=== PATIENT | male | born 1930 | race Caucasian/White ===

== ENCOUNTER 2016-09-04 11:25 | Emergency (ER) | payer MEDICARE, OTHER ==
[~2016-09-04] VITALS: Ht 182.9 cm; Wt 100.4 kg
[~2016-09-04 11:25] MED LIST: ASPI-730 PO; BISOPROLOL; CYAN500T37 PO; FISH1CAP PO; INSU10VI5 SQ; LISINOPRIL; MULT-806 PO; SIMVASTATIN
--- NOTE | 2016-09-04 11:26 | NUR ---
STROKE ACTIVATION CALLED AT THIS TIME. JASON BRAR, ROHAN RN AND OZZY GOMEZ AT BEDSIDE.
[2016-09-04 11:27] VITALS: TEMP 97.8; Ht 182.9 cm; Wt 100.4 kg
--- NOTE | 2016-09-04 11:27 | NUR ---
DR DR SANDERS AT BEDSIDE.
--- OUTSIDE RECORDS SUMMARY | 2016-09-04 11:30 | XMS REPORT | Referral Summary ---
Author Author [facility], Family Medicine Organization [facility] Address Unknown Phone Unavailable Care Team Providers Care Network Systems Integrator Name Role Phone John Santos Primary Care Physician [phone] Encounter VC Date(s): 08/06/15 - 08/06/15 [facility] Adame Newton, Family [address] [place] [id number] Discharge Disposition: 01-Home or Self Care Attending Physician: John Santos DO Admitting Physician: John Santos DO Vital Signs Most recent to 1 oldest [Reference Range]: Peripheral Pulse 63 bpm Rate [60-100 bpm] (08/06/15 9:27 AM) Blood Pressure 155/85 mmHg [90-140/60-90 mmHg] *HI* (08/06/15 9:27 AM) SpO2 98 % (08/06/15 9:27 AM) Problem List Condition Effective Dates Status Health Status Informant Diabetes type II Active NOS(Confirmed) Hypertension(Confirm Active ed) Trasient memory Active impairment(Confirmed ) Prostatism(Confirmed Active ) PURE Active HYPERCHOLESTEROLEMIA (Confirmed) Scarlet Active fever(Confirmed) Skin Active cancer(Confirmed) Allergies, Adverse Reactions, Alerts No Known Medication Allergies Medications Glucometer strips (DME) DME Item Test Blood Sugars fasting and after evening meal daily. Diag E11.9 One touch ultra blue or comparable strips. [employer], See Instructions, # 3 boxes, 2 Refill(s), Pharmacy: [facility], Test Blood Sugars fasting and after... Start Date: 06/18/15 Status: Ordered Insulin Pin [place] (DME) DME Item novolog mix 70-30 flexpen E11.9 inject 48 U in AM and 40 U in PM- insulin BID Patient needs 90d supply, See Instructions, # 6 boxes, 0 Refill(s) , Pharmacy: [facility], novolog mix 70-30 flexpen E11.9 inject 48 U in AM... Start Date: 06/12/15 Status: Ordered levothyroxine 25 mcg (0.025 mg) oral tablet 25 mcg 1 tabs, Oral, Daily, # 90 tabs, 1 Refill(s), Pharmacy: [facility], 1 tabs Oral Daily Start Date: 06/06/15 Status: Ordered lisinopril 40 mg oral tablet 40 mg 1 tabs, Oral, Daily, # 90 tabs, 1 Refill(s), Pharmacy: [facility] Start Date: 06/06/15 Stop Date: 12/03/15 Status: Ordered Miscellaneous DME DME Item TEST BLOOD SUGARS FASTING AND AFTER EVENING MEAL DAILY. Dx: E11.9 ONE STEP TEST STRIPS, See Instructions, # 1 Each, 0 Refill(s), Pharmacy: [facility], TEST BLOOD SUGARS FASTING AND AFTER EVENING MEAL DAILY. Dx: E11.9;... Start Date: 02/25/15 Status: Ordered Miscellaneous DME DME Item BD Ultra Fine Pen [place] Short 90 Day Supply BID, See Instructions , # 180 Each, 3 Refill(s), Pharmacy: [facility], BD Ultra Fine Pen [place]; Short; 90 Day Supply; BID, Supply, DX - 250.00 Start Date: 11/19/14 Status: Ordered Miscellaneous DME DME Item Contour test strips Test blood sugars fasting and after evening meal daily DX: 250.00, See Instructions, # 3 boxes, 0 Refill(s), [facility]acy: [facility], Contour test strips; Test blood sugars fasting and after evening meal... Start Date: 03/12/14 Status: Ordered multivitamins oral tablet 1 tabs, Oral, Daily, # 30 tabs, 0 Refill(s) Start Date: 10/13/13 Status: Ordered Norvasc 5 mg oral tablet 5 mg 1 tabs, Oral, Daily, # 30 tabs, 0 Refill(s), Pharmacy: [facility], 1 tabs Oral Daily Start Date: 08/06/15 Status: Ordered simvastatin 10 mg oral tablet 10 mg 1 tabs, Oral, Bedtime (once a day), # 90 tabs, 1 Refill(s), Pharmacy: [facility], 1 tabs Oral Bedtime (once a day) Start Date: 06/06/15 Status: Ordered Ultra Thin Lancets Ultra Thin Lancets, test, Topical, QID, Test Blood sugars fasting and 2 hours after meals daily(QID) DX: E11.9, # 100 Each, 0 Refill(s), Pharmacy: [facility], DX - 250.00, test Topical QID,Instr:Test Blood sugars fasting and 2 h... Start Date: 02/25/15 Status: Ordered Ziac 10 mg-6.25 mg oral tablet 1 tabs, Oral, Daily, # 90 tabs, 1 Refill(s), Pharmacy: [facility] Start Date: 06/06/15 Stop Date: 12/03/15 Status: Ordered Results Hematology Most recent to 1 oldest [Reference Range]: WBC [4.8-10.8 11.0 10*3/uL 10*3/uL] *HI* (08/06/15 10:44 AM) RBC [4.60-6.20] 4.35 *LOW* (08/06/15 10:44 AM) Hgb [14.0-18.0 14.5 gm/dL gm/dL] (08/06/15 10:44 AM) Hct [42.0-52.0 %] 41.9 % *LOW* (08/06/15 10:44 AM) MCV [82.0-99.0 fL] 96.3 fL (08/06/15 10:44 AM) MCH [27.0-32.0 pg] 33.3 pg *HI* (08/06/15 10:44 AM) MCHC [32.0-36.0 34.6 gm/dL gm/dL] (08/06/15 10:44 AM) RDW [11.5-14.5 %] 13.2 % (08/06/15 10:44 AM) Platelet [150-400 259 10*3/uL 10*3/uL] (08/06/15 10:44 AM) MPV [8.8-14.8 fL] 9.4 fL (08/06/15 10:44 AM) Immature 0.3 % Granulocytes (08/06/15 10:44 AM) [0.0-1.0 %] Neutrophils [51-75 59 % %] (08/06/15 10:44 AM) Lymphocytes [20-46 27 % %] (08/06/15 10:44 AM) Monocytes [4-11 %] 11 % (08/06/15 10:44 AM) Eosinophils [0-4 %] 2 % (08/06/15 10:44 AM) Basophils [0-2 %] 0 % (08/06/15 10:44 AM) Neutro Absolute 6.50 10*3 [1.90-7.00 10*3] (08/06/15 10:44 AM) Lymph Absolute 2.96 10*3 [0.80-3.30 10*3] (08/06/15 10:44 AM) [place] Absolute 1.22 10*3 [0.30-1.00 10*3] *HI* (08/06/15 10:44 AM) Eos Absolute 0.26 10*3 [0.00-0.50 10*3] (08/06/15 10:44 AM) Baso Absolute 0.03 10*3 [0.00-0.20 10*3] (08/06/15 10:44 AM) Chemistry Most recent to 1 oldest [Reference Range]: Sodium Lvl [135-144 136 mEq/L mEq/L] (08/06/15 10:44 AM) Potassium Lvl 4.4 mEq/L [3.5-5.2 mEq/L] (08/06/15 10:44 AM) Chloride [99-111 103 mEq/L mEq/L] (08/06/15 10:44 AM) CO2 [23-31 mEq/L] 29 mEq/L (08/06/15 10:44 AM) AGAP [3-20] 4 (08/06/15 10:44 AM) BUN [8-26 mg/dL] 29 mg/dL *HI* (08/06/15 10:44 AM) Glucose Lvl [70-99 133 mg/dL mg/dL] *HI* (08/06/15 10:44 AM) Creatinine Lvl 1.67 mg/dL [0.72-1.25 mg/dL] *HI* (08/06/15 10:44 AM) eGFR [>60 mL/min] 39 mL/min 1 *ABN* (08/06/15 10:44 AM) Calcium Lvl 9.7 mg/dL [8.9-10.5 mg/dL] (08/06/15 10:44 AM) Albumin Lvl [3.4-4.8 4.3 gm/dL gm/dL] (08/06/15 10:44 AM) Total Protein 7.5 gm/dL [6.2-8.1 gm/dL] (08/06/15 10:44 AM) Globulin [1.8-4.0 3.2 gm/dL gm/dL] (08/06/15 10:44 AM) ALT [0-55 U/L] 10 U/L (08/06/15 10:44 AM) AST [5-34 U/L] 17 U/L (08/06/15 10:44 AM) Alk Phos [40-150 49 U/L U/L] (08/06/15 10:44 AM) Bili Total [0.2-1.2 0.7 mg/dL mg/dL] (08/06/15 10:44 AM) Chol [0-199 mg/dL] 149 mg/dL (08/06/15 10:44 AM) Trig [0-149 mg/dL] 316 mg/dL *HI* (08/06/15 10:44 AM) HDL [40-84 mg/dL] 34 mg/dL *LOW* (08/06/15 10:44 AM) LDL [0-130 mg/dL] 52 mg/dL (08/06/15 10:44 AM) VLDL Cholesterol 63 mg/dL [0-28 mg/dL] *HI* (08/06/15 10:44 AM) Cardiac Risk 4.4 [0.0-5.7] (08/06/15 10:44 AM) Hgb A1c [4.1-5.6 %] 6.4 % *HI* (08/06/15 10:44 AM) eAvg Glucose 137.0 mg/dL (08/06/15 10:44 AM) 1Result Comment: Multiply eGFR results by 1.21 for race. Immunizations Vaccine Date Refusal Reason influenza virus vaccine, inactivated 02/13/14 influenza virus vaccine, live 11/20/13 influenza virus vaccine, live 02/23/12 pneumococcal 23-polyvalent vaccine 02/21/08 pneumococcal 23-polyvalent vaccine 06/28/96 Procedures Procedure Date Related Diagnosis Body Site Hospital observation for transient memory 2014 impairment Cataract extraction - bilateral 2011 Cystoscopy 2007 Repeat patellar tendon attachement rt leg 2008 Rt leg, reattachment of quadriceps tendon 2008 with josafat Biopsy of prostate x2 2006 Colonoscopy 2005 Removal of cancer from scalp 1993 Hospital admission - scarlet fever 1935 Social History Social History Type Response Smoking Status Never smoker Assessment and Plan Extracted from: Title: Office Visit Note Author: John Santos DO Date: 08/06/15 Assessment/Plan Diabetes type 2, controlled 1. A1c ordered today, we will call him with the report. 2. Continue with current regimen of insulin. On the days that he eat pizza , I recommend increasing his insulin by 4 units. 3. Follow-up in 3 months for diabetes management. Ordered: Office Visit Level 4 Est 14575 Hypertension, uncontrolled 1. Blood pressure continues to be elevated. 2. Continue with Ziac 2 tablets daily. 3. Continue lisinopril 40 mg daily. 4. Amlodipine added today at 5 mg daily. 5. Low salt diet recommended. 6. Follow-up in one month for reevaluation. Ordered: CBC w/ Differential Office Visit Level 4 Est 22359 Type 2 DM with CKD stage 3 and hypertension 1. She has history of CKD stage III. Labs ordered today, if renal function worsens then we may consider sending him to nephrology. 2. Protein diet recommended. 3. Good blood pressure and blood sugars control recommended. Ordered: Albumin/Creatinine Ratio, Urine CBC w/ Differential Comprehensive Metabolic Panel Hemoglobin A1c Lipid Panel Office Visit Level 4 Est 63867 Orders: amLODIPine, 5 mg 1 tabs, Oral, Daily, # 30 tabs, 0 Refill(s), Pharmacy : [facility], 1 tabs Oral Daily
--- OUTSIDE RECORDS SUMMARY | 2016-09-04 11:30 | XMS REPORT | Continuity of Care Document ---
Author Author Johnny VIVEROS, Garfield MARIE [facility] Ambulatory Address [address] [place] [address] Phone Care Team Providers Care Machine Spring Former Name Role Phone Garfield Turner PP Unavailable Payers Payer name Insurance type Covered alliance party ID Authorization(s) Unknown Problems Condition Effective Dates (start - stop) Clinical Status Hypothyroidism - *Acute Diabetes Mellitus Type 2, Uncomplicated - *Chronic Hypertension, Unspecified - *Chronic Hypercholesterolemia - *Chronic DMII WO CMP NT ST UNCNTR - PURE HYPERCHOLESTEROLEM - HYPERTENSION NOS - PROSTATITIS NOS - Diabetes Mellitus Type 2, Uncomplicated - *Uncontrolled Hypercholesterolemia - *Chronic Hypertension, Unspecified - *Chronic Diabetes Mellitus Type 2, Uncomplicated - *Chronic Hypertension, Unspecified - *Chronic Hypercholesterolemia - *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 TIA (transient ischemic attack) - Episodic Diabetes Mellitus Type 2, Uncomplicated - *Chronic Hypertension, Unspecified - *Chronic Hypercholesterolemia - *Chronic Neuropathy - *Chronic Family History Family Member Diagnosis Age At Onset Status Sister () Alzheimer's Disease Yes Father (Unknown) Myocardial infarction Yes Brother (Unknown) Cancer -testicular Yes Son (Unknown) Myocardial infarction Yes Mother (Alive) 72 (cause of ) Yes Sister (Unknown) Dementia Yes Social History Social History Element Description Quantity alcohol beer Allergies, Adverse Reactions, Alerts Substance Reaction Severity Status Unknown Medications Medication Instructions Dosage Effective Dates (start - stop) Status Synthroid 25 mcg tablet take 1 tablet (25MCG) by oral route every day 25 MCG - No Longer Active Zocor 10 mg tablet Take 1 tablet by mouth at bedtime. - Active Synthroid 25 mcg tablet take 1 tablet (25MCG) by oral route every day 25 MCG - Active Zestril 20 mg tablet Take 1 tablet by mouth twice a day. - Active Plavix 75 mg tablet take 1 tablet (75MG) by oral route every day 75 MG May - Active Ziac 5 mg-6.25 mg tablet Take 1 tablet by mouth twice a day. - Active multivitamin tablet Take 1 tablet every day. - Active Lancets,Ultra Thin TEST BLOOD SUGARS FASTING AND 2 HOURS AFTER MEALS DAILY (4 times daily) - Active BD Insulin Pen Needle UF Short 31 X 5/16" USE DIRECTED inject insulin id TWICE DAILY - Active Contour Test Strips TEST BLOOD SUGARS FASTING AND 2 HOURS AFTER MEALS DAILY. - Active Novolog Mix 70-30 FlexPen 100 unit/mL subcutaneous pen inject by subcutaneous route as per insulin protocol 48 UNITS IN AM AND 40 UNITS IN PM - Active Immunizations Vaccine Date Status Comments flu (split) (3 yrs or older) preservative free completed - Completed reason: other registry flu (split) (3 yrs or older) completed pneumo (2 yrs or older) (PPV23) completed - Completed reason: source unspecified pneumo (2 yrs or older) (PPV23) completed - Completed reason: source unspecified Results Test Name Date and Time Measure Units Reference Range Abnormal Flag Comments Panel Description: Thyroid Antibodies-[facility] Thyroperoxidase Ab (TPO) 10:18:00 <3 IU/mL 0-6 Thyroglobulin Ab screen 10:18:00 6 IU/mL 0-5 H Testing performed at [facility] Reference Lab [address] [address] Vacuum Drier Operator Shiva Lopez MD Panel Description: TSH-[facility] TSH 10:18:00 3.55 uIU/mL 0.35-4.94 Testing performed at [facility] Reference Lab [address] [address] Vacuum Drier Operator Shiva Lopez MD Vital Signs Date / Time: Height Weight Pulse Rate Blood Pressure Temperature /08:29:00 71.25 in 222.00 lbs 68 /min 158/88 mm[Hg] 97.6 F Procedures Procedure Date Unknown Encounters Encounter Location Date Patient Visit [facility] Patient Visit Conversion Patient Visit [facility] Patient Visit [facility] Patient Visit [facility] Patient Visit [facility] Patient Visit [facility] Patient Visit [facility] Patient Visit [facility] Advance Directives Directive Effective Date Unknown
--- OUTSIDE RECORDS SUMMARY | 2016-09-04 11:30 | XMS REPORT | Referral Summary ---
Author Author [facility], Family [facility] Organization [facility] Address Unknown Phone Unavailable Care Team Providers Care Blender Helper Name Role Phone John Santos Primary Care Physician [phone] Encounter VC Date(s): 01/27/16 - 01/27/16 [facility] Adame Newton, [address] [place] [address]- Discharge Diagnosis: Hypertension Discharge Diagnosis: Chronic kidney disease, stage 3 Discharge Diagnosis: Disability examination Discharge Diagnosis: Dependent edema Discharge Disposition: 01-Home or Self Care Attending Physician: John Santos DO Admitting Physician: John Santos DO Vital Signs Most recent to 1 oldest [Reference Range]: Peripheral Pulse 73 bpm Rate [60-100 bpm] (01/27/16 3:18 PM) Blood Pressure 162/78 mmHg [90-140/60-90 mmHg] *HI* (01/27/16 3:18 PM) Problem List Condition Effective Dates Status Health [...] Instructions, # 3 boxes, 2 Refill(s), [facility], Test Blood Sugars fasting and after... Start Date: 06/18/15 Status: Ordered Insulin Pin [place] (DME) DME Item novolog mix 70-30 flexpen E11.9 inject 48 U in AM and 40 U in PM- insulin BID Patient needs 90d supply, See Instructions, # 6 boxes, 0 Refill(s) , Pharmacy: [facility], novolog mix 70-30 flexpen E11.9 inject 48 U in AM... Start Date: 06/12/15 Status: Ordered levothyroxine 25 mcg (0.025 mg) oral tablet 25 mcg 1 tabs, Oral, Daily, # 90 tabs, 1 Refill(s), Pharmacy: [facility], 1 tabs Oral Daily Start Date: 06/06/15 Status: Ordered lisinopril 40 mg oral tablet 40 mg 1 tabs, Oral, Daily, # 90 tabs, 1 Refill(s), Pharmacy: [facility] Start Date: 06/06/15 Stop Date: 12/03/15 Status: Ordered Miscellaneous DME DME Item TEST BLOOD SUGARS FASTING AND AFTER EVENING MEAL DAILY. Dx: E11.9 ONE STEP TEST STRIPS, See Instructions, # 1 Each, 0 Refill(s), Pharmacy: [facility], TEST BLOOD SUGARS FASTING AND AFTER EVENING MEAL DAILY. Dx: E11.9;... Start Date: 02/25/15 Status: Ordered Miscellaneous DME DME Item BD Ultra Fine Pen [place] Short 90 Day Supply BID, See Instructions , # 180 Each, 3 Refill(s), Pharmacy: [facility], BD Ultra Fine Pen [place]; Short; 90 Day Supply; BID, Supply, DX - 250.00 Start Date: 11/19/14 Status: Ordered Miscellaneous DME DME Item Contour test strips Test blood sugars fasting and after evening meal daily DX: 250.00, See Instructions, # 3 boxes, 0 Refill(s), [facility]acy: [facility], Contour test strips; Test blood sugars fasting and after evening meal... Start Date: 03/12/14 Status: Ordered multivitamins oral tablet 1 tabs, Oral, Daily, # 30 tabs, 0 Refill(s) Start Date: 10/13/13 Status: Ordered Norvasc 5 mg oral tablet 5 mg 1 tabs, Oral, Daily, # 30 tabs, 0 Refill(s), Pharmacy: [facility], 1 tabs Oral Daily Start Date: 08/06/15 Status: Ordered NovoLOG Mix 70/30 FlexPen subcutaneous suspension See Instructions, INJECT 48 UNITS IN THE MORNING AND 40 UNITS IN THEEVENING , # 90 mL, 3 Refill(s), eRx: [facility], INJECT 48 UNITS IN THE MORNING AND 40 UNITS IN THEEVENING Start Date: 10/02/15 Status: Ordered simvastatin 10 mg oral tablet 10 mg 1 tabs, Oral, Bedtime (once a day), # 90 tabs, 1 Refill(s), Pharmacy: [facility], 1 tabs Oral Bedtime (once a day) Start Date: 06/06/15 Status: Ordered Ultra Thin Lancets Ultra Thin Lancets, test, Topical, QID, Test Blood sugars fasting and 2 hours after meals daily(QID) DX: E11.9, # 100 Each, 0 Refill(s), Pharmacy: [facility], DX - 250.00, test Topical QID,Instr:Test Blood sugars fasting and 2 h... Start Date: 02/25/15 Status: Ordered Ziac 10 mg-6.25 mg oral tablet 1 tabs, Oral, Daily, # 90 tabs, 1 Refill(s), Pharmacy: [facility] Start Date: 06/06/15 Stop Date: 12/03/15 Status: Ordered Results No data available for this section Immunizations Vaccine Date Refusal Reason influenza virus vaccine, inactivated 01/27/16 influenza virus vaccine, inactivated 02/13/14 influenza virus vaccine, live 03/22/13 influenza virus vaccine, live 02/23/12 pneumococcal 23-polyvalent vaccine 02/21/08 pneumococcal 23-polyvalent vaccine 06/28/96 Procedures Procedure Date Related Diagnosis Body Site Hospital observation for 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 Recheck of his blood pressure was 142/68 2. Low salt diet recommended 3. With the finding of edema, I recommendation is to discontinue amlodipine. Patient and his daughter were agreeable. 4. Follow-up in a month for reevaluation. Ordered: Office Visit Level 4 Est 21634 2.Dependent edema 1. Treatment for edema as above. 2. Minimize salt consumption. Ordered: Office Visit Level 4 Est 86967 3.Disability examination 1. I agree with his need for disability accommodation when parking. The form was filled out and provided to the patient. Ordered: Office Visit Level 4 Est 50823 4.Chronic kidney disease, stage 3 1. Continue with recommendation as per Dr. Greenfield. Ordered: Office Visit Level 4 Est 89407 Need for influenza vaccination 1. Flu vaccination given today. Ordered: Office Visit Level 4 Est 65457
--- OUTSIDE RECORDS SUMMARY | 2016-09-04 11:30 | XMS REPORT | Referral Summary ---
Author Author [facility], Family Medicine Organization [facility] Address Unknown Phone Unavailable Care Team Providers Care Access Tech Name Role Phone John Santos Primary Care Physician [phone] Encounter VC Date(s): 09/05/15 - 09/05/15 [facility] [address] [place] [address]- Discharge Diagnosis: Well-controlled hypertension Discharge Diagnosis: Diabetes type 2, controlled Discharge Diagnosis: Plantar fascia syndrome Discharge Diagnosis: DM type 2 causing CKD stage 3 Discharge Disposition: 01-Home or Self Care Attending Physician: John Santos DO Admitting Physician: John Santos DO Vital Signs Most recent to 1 oldest [Reference Range]: Temperature Tympanic 36.3 degC [36.6-38.1 degC] *LOW* (09/05/15 9:31 AM) Peripheral Pulse 64 bpm Rate [60-100 bpm] (09/05/15 9:31 AM) Blood Pressure 135/80 mmHg [90-140/60-90 mmHg] (09/05/15 9:31 AM) SpO2 98 % (09/05/15 9:31 AM) Problem List Condition Effective Dates Status Health Status Informant Diabetes type II Active NOS(Confirmed) Hypertension(Confirm Active ed) Trasient memory Active impairment(Confirmed ) Prostatism(Confirmed Active ) PURE Active HYPERCHOLESTEROLEMIA (Confirmed) Scarlet Active fever(Confirmed) Skin Active cancer(Confirmed) Allergies, Adverse Reactions, Alerts No Known Medication Allergies Medications amLODIPine 5 mg oral tablet See Instructions, TAKE 1 TABLET DAILY, # 30 tabs, 1 Refill(s), eRx: [facility], TAKE 1 TABLET DAILY Start Date: 08/23/15 Status: Ordered Glucometer strips (DME) DME Item Test Blood Sugars fasting and after evening meal daily. Diag E11.9 One touch ultra blue or comparable strips. [employer], See Instructions, # 3 boxes, 2 Refill(s), Pharmacy: [facility], Test Blood Sugars fasting and after... Start Date: 06/18/15 Status: Ordered Insulin Pin [place] (DME) DME Item novolog mix 70-30 flexpen E11.9 inject 48 U in AM and 40 U in PM- insulin BID Patient needs 90d supply, See Instructions, # 6 boxes, 0 Refill(s) , Pharmacy: [facility], novolog mix 70-30 flexpen E11.9 inject 48 U in AM... Start Date: 06/12/15 Status: Ordered levothyroxine 25 mcg (0.025 mg) oral tablet 25 mcg 1 tabs, Oral, Daily, # 90 tabs, 1 Refill(s), Pharmacy: [facility], 1 tabs Oral Daily Start Date: 06/06/15 Status: Ordered lisinopril 40 mg oral tablet 40 mg 1 tabs, Oral, Daily, # 90 tabs, 1 Refill(s), Pharmacy: [facility] Start Date: 06/06/15 Stop Date: 12/03/15 Status: Ordered Miscellaneous DME DME Item TEST BLOOD SUGARS FASTING AND AFTER EVENING MEAL DAILY. Dx: E11.9 ONE STEP TEST STRIPS, See Instructions, # 1 Each, 0 Refill(s), Pharmacy: [facility], TEST BLOOD SUGARS FASTING AND AFTER EVENING MEAL DAILY. Dx: E11.9;... Start Date: 02/25/15 Status: Ordered Miscellaneous DME DME Item BD Ultra Fine Pen [place] Short 90 Day Supply BID, See Instructions , # 180 Each, 3 Refill(s), Pharmacy: [facility], BD Ultra Fine Pen [place]; Short; 90 Day Supply; BID, Supply, DX - 250.00 Start Date: 11/19/14 Status: Ordered Miscellaneous DME DME Item Contour test strips Test blood sugars fasting and after evening meal daily DX: 250.00, See Instructions, # 3 boxes, 0 Refill(s), Pharmacy: [facility], Contour test strips; Test blood sugars fasting and after evening meal... Start Date: 03/12/14 Status: Ordered multivitamins oral tablet 1 tabs, Oral, Daily, # 30 tabs, 0 Refill(s) Start Date: 10/13/13 Status: Ordered Norvasc 5 mg oral tablet 5 mg 1 tabs, Oral, Daily, # 30 tabs, 0 Refill(s), Pharmacy: [facility], 1 tabs Oral Daily Start Date: 08/06/15 Status: Ordered simvastatin 10 mg oral tablet 10 mg 1 tabs, Oral, Bedtime (once a day), # 90 tabs, 1 Refill(s), Pharmacy: [facility], 1 tabs Oral Bedtime (once a day) Start Date: 06/06/15 Status: Ordered Ultra Thin Lancets Ultra Thin Lancets, test, Topical, QID, Test Blood sugars fasting and 2 hours after meals daily(QID) DX: E11.9, # 100 Each, 0 Refill(s), Pharmacy: [facility], DX - 250.00, test Topical QID,Instr:Test Blood sugars fasting and 2 h... Start Date: 02/25/15 Status: Ordered Ziac 10 mg-6.25 mg oral tablet 1 tabs, Oral, Daily, # 90 tabs, 1 Refill(s), Pharmacy: [facility] Start Date: 06/06/15 Stop Date: 12/03/15 [...] Visit Note Author: John Santos DO Date: 09/05/15 Assessment/Plan Diabetes type 2, controlled 1. His A1c was 6.2, this is well controlled. 2. Continue with current insulin regimen. 3. Recheck hemoglobin A1c in 6 months. Ordered: Office Visit Level 4 Est 02976 DM type 2 causing CKD stage 3 1. His renal function is consistent with CKD stage III. Pathophysiology of this presentation discussed in detail with the patient. 2. Given that he has significant microalbuminuria, I recommended nephrology consult however he would like to hold off on that for now. 3. Avoid NSAIDs. 4. Repeat renal function in 3 months, if he has worsening creatinine and GFR then we plan on sending him to nephrology. Patient is understanding. Ordered: Office Visit Level 4 Est 54997 Plantar fascia syndrome 1. Continue with arch supports. 2. May take Tylenol for pain. Avoid NSAIDs secondary to decreased renal function. Ordered: Office Visit Level 4 Est 12438 Well-controlled hypertension 1. Recommendations as above. 2. Low salt diet recommended. 3. Continue with Norvasc, lisinopril and Ziac as previous. Ordered: Office Visit Level 4 Est 99788
--- OUTSIDE RECORDS SUMMARY | 2016-09-04 11:30 | XMS REPORT | Referral Summary ---
Author Author [facility], Family Medicine Organization [facility] Address Unknown Phone Unavailable Care Team Providers Care Spray Technician Name Role Phone John Santos Primary Care Physician [phone] Encounter VC Date(s): 12/06/15 - 12/06/15 [facility], [address] [place] [address]- Discharge Diagnosis: Hypertension Discharge Diagnosis: Plantar fasciitis, right Discharge Diagnosis: Type II diabetes mellitus, well controlled Discharge Disposition: 01-Home or Self Care Attending Physician: John Santos DO Admitting Physician: John Santos DO Vital Signs Most recent to 1 oldest [Reference Range]: Temperature Tympanic 36.6 degC [36.6-38.1 degC] (12/06/15 10:04 AM) Apical Heart Rate 72 bpm [60-100 bpm] (12/06/15 10:04 AM) Blood Pressure 136/78 mmHg [90-140/60-90 mmHg] (12/06/15 10:04 AM) SpO2 98 % (12/06/15 10:04 AM) Problem List Condition Effective Dates Status [...] One touch ultra blue or comparable strips. [employer], See Instructions, # 3 boxes, 2 Refill(s), Pharmacy: [facility], Test Blood Sugars fasting and after... Start Date: 06/18/15 Status: Ordered Insulin Pin [place] (DME) DME Item novolog mix 70-30 flexpen E11.9 inject 48 U in AM and 40 U in PM- insulin BID Patient needs 90d supply, See Instructions, # 6 boxes, 0 Refill(s) , Pharmacy: [facility], novolog mix 70-30 flexpen E11.9 inject 48 U in AM... Start Date: 06/12/15 Status: Ordered levothyroxine 25 mcg (0.025 mg) oral tablet 25 mcg 1 tabs, Oral, Daily, # 90 tabs, 1 Refill(s), Pharmacy: [facility], 1 tabs Oral Daily Start Date: 06/06/15 Status: Ordered lisinopril 40 mg oral tablet 40 mg 1 tabs, Oral, Daily, # 90 tabs, 1 Refill(s), Pharmacy: [facility] Start Date: 06/06/15 Stop Date: 12/03/15 Status: Ordered Miscellaneous DME DME Item TEST BLOOD SUGARS FASTING AND AFTER EVENING MEAL DAILY. Dx: E11.9 ONE STEP TEST STRIPS, See Instructions, # 1 Each, 0 Refill(s), Pharmacy: [facility], TEST BLOOD SUGARS FASTING AND AFTER EVENING MEAL DAILY. Dx: E11.9;... Start Date: 02/25/15 Status: Ordered Miscellaneous DME DME Item BD Ultra Fine Pen [place] Short 90 Day Supply BID, See Instructions , # 180 Each, 3 Refill(s), Pharmacy: [facility], BD Ultra Fine Pen [place]; Short; 90 Day Supply; BID, Supply, DX - 250.00 Start Date: 11/19/14 Status: Ordered Miscellaneous DME DME Item Contour test strips Test blood sugars fasting and after evening meal daily DX: 250.00, See Instructions, # 3 boxes, 0 Refill(s), Pharmacy: [facility], Contour test strips; Test blood sugars fasting and after evening meal... Start Date: 03/12/14 Status: Ordered multivitamins oral tablet 1 tabs, Oral, Daily, # 30 tabs, 0 Refill(s) Start Date: 10/13/13 Status: Ordered Norvasc 5 mg oral tablet 5 mg 1 tabs, Oral, Daily, # 30 tabs, 0 Refill(s), Pharmacy: [facility], 1 tabs Oral Daily Start Date: 08/06/15 Status: Ordered NovoLOG Mix 70/30 FlexPen subcutaneous suspension See Instructions, INJECT 48 UNITS IN THE MORNING AND 40 UNITS IN THEEVENING , # 90 mL, 3 Refill(s), eRx: [facility], INJECT 48 UNITS IN THE MORNING AND 40 UNITS IN THEEVENING Start Date: 10/02/15 Status: Ordered simvastatin 10 mg oral tablet 10 mg 1 tabs, Oral, Bedtime (once a day), # 90 tabs, 1 Refill(s), Pharmacy: [facility], 1 tabs Oral Bedtime (once a day) Start Date: 06/06/15 Status: Ordered Ultra Thin Lancets Ultra Thin Lancets, test, Topical, QID, Test Blood sugars fasting and 2 hours after meals daily(QID) DX: E11.9, # 100 Each, 0 Refill(s), Pharmacy: [facility], DX - 250.00, test Topical QID,Instr:Test Blood sugars fasting and 2 h... Start Date: 02/25/15 Status: Ordered Ziac 10 mg-6.25 mg oral tablet 1 tabs, Oral, Daily, # 90 tabs, 1 Refill(s), Pharmacy: 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 Based on his home blood sugar readings, his diabetes is well controlled. 2. Continue with current management. 3. Follow-up in 3 months for diabetes management, repeat A1c at that time. Ordered: Comprehensive Metabolic Panel Hemoglobin A1c Office Visit Level 4 Est 65530 2.Hypertension 1. His blood pressures well controlled. 2. Low salt diet recommended. 3. Avoid NSAIDs. Ordered: Office Visit Level 4 Est 85238 3.Plantar fasciitis, right 1. Clinical finding consistent with plantar fasciitis. Injection offered to which he agreed. Procedure: The plantar fascia injection Indication: Painful after region with weightbearing. Location: Right foot Medication: 40 mg of Kenalog, 1 mL of one percent lidocaine without epinephrine. Description: Following verbal informed consent, the patient was laid in the supine position, the medial aspect of the foot was cleansed with Betadine to create a sterile field. Using sterile technique, a combined solution of 40 mg of Kenalog and one percent lidocaine without epinephrine was injected towards the region of the plantar fascia. Patient tolerated treatment well. Dry dressing was applied and wound care instructions provided. Ordered: Injection(s); Single Tendon Sheath, Or Ligament Aponeurosis 77412 Office Visit Level 4 Est 44263 CKD (chronic kidney disease), stage III 1. Repeat basic metabolic profile in 3 months. 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 2. Avoid NSAIDs. Ordered: Comprehensive Metabolic Panel
--- OUTSIDE RECORDS SUMMARY | 2016-09-04 11:30 | XMS REPORT | Referral Summary ---
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 Discharge Diagnosis: Bilateral plantar fasciitis Discharge Diagnosis: Hypertension Discharge Disposition: 01-Home or Self Care Attending Physician: John Santos DO Admitting Physician: John Santos DO Vital Signs Most recent to 1 oldest [Reference Range]: Temperature Tympanic 36 degC [36.6-38.1 degC] *LOW* (05/06/15 9:05 AM) Peripheral Pulse 66 bpm Rate [60-100 bpm] (05/06/15 9:05 AM) Blood Pressure 151/68 mmHg [90-140/60-90 mmHg] *HI* (05/06/15 9:05 AM) Problem List Condition Effective Dates Status Health Status Informant Diabetes type II Active NOS(Confirmed) Hypertension(Confirm Active ed) Trasient memory Active impairment(Confirmed ) Prostatism(Confirmed Active ) PURE Active HYPERCHOLESTEROLEMIA (Confirmed) Scarlet Active fever(Confirmed) Skin Active cancer(Confirmed) Allergies, Adverse Reactions, Alerts No Known Medication Allergies Medications Glucometer strips (DME) DME Item Test Blood Sugars fasting and after evening meal daily 250.00 Contour strips. [employer], See Instructions, # 3 boxes, 3 Refill(s), Pharmacy: [facility], Test Blood Sugars fasting and after evening meal daily 250.00 Contour... Start Date: 11/19/14 Status: Ordered Insulin Pin [place] (DME) DME Item novolog mix 70-30 flexpen E11.9 inject 48 U in AM and 40 U in PM- insulin BID Patient needs 90d supply, See Instructions, # 6 boxes, 0 Refill(s) , Pharmacy: [facility], novolog mix 70-30 flexpen E11.9 inject 48 U in AM... Start Date: 02/25/15 Status: Ordered levothyroxine 25 mcg (0.025 mg) oral tablet 25 mcg 1 tabs, Oral, Daily, # 90 tabs, 1 Refill(s), Pharmacy: [id number], 1 tabs Oral Daily Start Date: 02/25/15 Status: Ordered lisinopril 20 mg oral tablet 20 mg 1 tabs, Oral, BID, # 180 tabs, 1 Refill(s), Pharmacy: [facility] Start Date: 02/25/15 Status: Ordered Miscellaneous DME DME Item TEST BLOOD SUGARS FASTING AND AFTER EVENING MEAL DAILY. Dx: E11.9 ONE STEP TEST STRIPS, See Instructions, # 1 Each, 0 Refill(s), Pharmacy: [facility], TEST BLOOD SUGARS FASTING AND AFTER EVENING MEAL DAILY. Dx: E11.9;... Start Date: 02/25/15 Status: Ordered Miscellaneous DME DME Item BD Ultra Fine Pen [place] Short 90 Day Supply BID, See Instructions , # 180 Each, 3 Refill(s), Pharmacy: [facility], BD Ultra Fine Pen [place]; Short; 90 Day Supply; BID, Supply, DX - 250.00 Start Date: 11/19/14 Status: Ordered Miscellaneous DME DME Item Contour test strips Test blood sugars fasting and after evening meal daily DX: 250.00, See Instructions, # 3 boxes, 0 Refill(s), Pharmacy: [facility], Contour test strips; Test blood sugars fasting and after evening meal... Start Date: 03/12/14 Status: Ordered multivitamins oral tablet 1 tabs, Oral, Daily, # 30 tabs, 0 Refill(s) Start Date: 10/13/13 Status: Ordered simvastatin 10 mg oral tablet 10 mg 1 tabs, Oral, Bedtime (once a day), # 90 tabs, 1 Refill(s), Pharmacy: [facility], 1 tabs Oral Bedtime (once a day) Start Date: 02/25/15 Status: Ordered Ultra Thin Lancets Ultra Thin Lancets, test, Topical, QID, Test Blood sugars fasting and 2 hours after meals daily(QID) DX: E11.9, # 100 Each, 0 Refill(s), Pharmacy: [facility], DX - 250.00, test Topical QID,Instr:Test Blood sugars fasting and 2 h... Start Date: 02/25/15 Status: Ordered Ziac 5 mg-6.25 mg oral tablet 1 tabs, Oral, BID, # 180 tabs, 1 Refill(s), Pharmacy: [facility] Start Date: 02/25/15 Status: Ordered Results No data available for [...] 2008 with josafat Biopsy of prostate x2 2005 Colonoscopy 2005 Removal of cancer from scalp 1993 Hospital admission - scarlet fever 1935 Social History Social History Type Response Smoking Status Never smoker Assessment and Plan Extracted from: Title: Office Visit Note Author: John Santos DO Date: 05/06/15 Assessment/Plan Bilateral plantar fasciitis Pathophysiology of this presentation, and differential diagnosis, discussed in detail with the patient. All questions were answered. 1. Handout provided explaining this presentation as well as exercises to help with the discomfort. 2. Alternatively, he may consider using form arch supports. 3. Follow-up in a month for reevaluation, if no improvement we may consider steroid injection. Ordered: Office Visit Level 4 Est 98529 Hypertension Blood pressures well relatively controlled, his systolic blood pressure is slightly high. We will recheck in a month timeand adjust medication accordingly. Ordered: Office Visit Level 4 Est 11196 Insulin dependent type 2 diabetes mellitus 1. Continue with NovoLog 7-30, 48 units in the morning and 40 units in the evening. 2. Recommended checking blood sugar fastingon a daily basis. 3. Bring in blood sugars at next office visit for review. Ordered: Office Visit Level 4 Est 37870 Extracted from: Title: Ambulatory Patient Education Author: John Santos DO Date: 05/06/15 Family Medicine Plantar Fasciitis (Heel Spur Syndrome) with Rehab The plantar fascia is a fibrous, ligament-like, soft-tissue structure that spans the bottom of the foot. Plantar fasciitis is a condition that causes pain in the foot due to inflammation of the tissue. SYMPTOMS Pain and tenderness on the underneath side of the foot. Pain that worsens with standing or walking. CAUSES Plantar fasciitis is caused by irritation and injury to the plantar fascia on the underneath side of the foot. Common mechanisms of injury include: Direct trauma to bottom of the foot. Damage to a small nerve that runs under the foot where the main fascia attaches to the heel bone. Stress placed on the plantar fascia due to bone spurs. RISK INCREASES WITH: Activities that place stress on the plantar fascia (running, jumping, pivoting, or cutting). Poor strength and flexibility. Improperly fitted shoes. Tight calf muscles. Flat feet. Failure to warm-up properly before activity. Obesity. PREVENTION Warm up and stretch properly before activity. Allow for adequate recovery between workouts. Maintain physical fitness: Strength, flexibility, and endurance. Cardiovascular fitness. Maintain a health body weight. Avoid stress on the plantar fascia. Wear properly fitted shoes, including arch supports for individuals who have flat feet. PROGNOSIS If treated properly, then the symptoms of plantar fasciitis usually resolve without surgery. However, occasionally surgery is necessary. RELATED COMPLICATIONS Recurrent symptoms that may result in a chronic condition. Problems of the lower back that are caused by compensating for the injury, such as limping. Pain or weakness of the foot during push-off following surgery. Chronic inflammation, scarring, and partial or complete fascia tear, occurring more often from repeated injections. TREATMENT Treatment initially involves the use of ice and medication to help reduce pain and inflammation. The use of strengthening and stretching exercises may help reduce pain with activity, especially stretches of the Achilles tendon. These exercises may be performed at home or with a therapist. Your caregiver may recommend that you use heel cups of arch supports to help reduce stress on the plantar fascia. Occasionally, corticosteroid injections are given to reduce inflammation. If symptoms persist for greater than 6 months despite non- surgical (conservative), then surgery may be recommended. MEDICATION If pain medication is necessary, then nonsteroidal anti-inflammatory medications, such as aspirin and ibuprofen, or other minor pain relievers, such as acetaminophen, are often recommended. Do not take pain medication within 7 days before surgery. Prescription pain relievers may be given if deemed necessary by your caregiver. Use only as directed and only as much as you need. Corticosteroid injections may be given by your caregiver. These injections should be reserved for the most serious cases, because they may only be given a certain number of times. HEAT AND COLD Cold treatment (icing) relieves pain and reduces inflammation. Cold treatment should be applied for 10 to 15 minutes every 2 to 3 hours for inflammation and pain and immediately after any activity that aggravates your symptoms. Use ice packs or massage the area with a piece of ice (ice massage). Heat treatment may be used prior to performing the stretching and strengthening activities prescribed by your caregiver, physical therapist, or strainer tender. Use a heat pack or soak the injury in warm water. SEEK IMMEDIATE MEDICAL CARE IF: Treatment seems to offer no benefit, or the condition worsens. Any medications produce adverse side effects. EXERCISES RANGE OF MOTION (ROM) AND STRETCHING EXERCISES - Plantar Fasciitis (Heel Spur Syndrome) These exercises may help you when beginning to rehabilitate your injury. Your symptoms may resolve with or without further involvement from your physician, physical therapist or strainer tender. While completing these exercises, remember: Restoring tissue flexibility helps normal motion to return to the joints. This allows healthier, less painful movement and activity. An effective stretch should be held for at least 30 seconds. A stretch should never be painful. You should only feel a gentle lengthening or release in the stretched tissue. RANGE OF MOTION - Toe Extension, Flexion Sit with your right / left leg crossed over your opposite knee. Grasp your toes and gently pull them back toward the top of your foot. You should feel a stretch on the bottom of your toes and/or foot. Hold this stretch for seconds. Now, gently pull your toes toward the bottom of your foot. You should feel a stretch on the top of your toes and or foot. Hold this stretch for seconds. Repeat times. Complete this stretch times per day. RANGE OF MOTION - Ankle Dorsiflexion, Active Assisted Remove shoes and sit on a chair that is preferably not on a carpeted surface. Place right / left foot under knee. Extend your opposite leg for support. Keeping your heel down, slide your right / left foot back toward the chair until you feel a stretch at your ankle or calf. If you do not feel a stretch, slide your bottom forward to the edge of the chair, while still keeping your heel down. Hold this stretch for seconds. Repeat times. Complete this stretch times per day. STRETCH Gastroc, Standing Place hands on wall. Extend right / left leg, keeping the front knee somewhat bent. Slightly point your toes inward on your back foot. Keeping your right / left heel on the floor and your knee straight, shift your weight toward the wall, not allowing your back to arch. You should feel a gentle stretch in the right / left calf. Hold this position for seconds. Repeat times. Complete this stretch times per day. STRETCH [place], Standing Place hands on wall. Extend right / left leg, keeping the other knee somewhat bent. Slightly point your toes inward on your back foot. Keep your right / left heel on the floor, bend your back knee, and slightly shift your weight over the back leg so that you feel a gentle stretch deep in your back calf. Hold this position for seconds. Repeat times. Complete this stretch times per day. STRETCH Gastrocsoleus, Standing Note: This exercise can place a lot of stress on your foot and ankle. Please complete this exercise only if specifically instructed by your caregiver. Place the ball of your right / left foot on a step, keeping your other foot firmly on the same step. Hold on to the wall or a rail for balance. Slowly lift your other foot, allowing your body weight to press your heel down over the edge of the step. You should feel a stretch in your right / left calf. Hold this position for seconds. Repeat this exercise with a slight bend in your right / left knee. Repeat times. Complete this stretch times per day. STRENGTHENING EXERCISES - Plantar Fasciitis (Heel Spur Syndrome) These exercises may help you when beginning to rehabilitate your injury. They may resolve your symptoms with or without further involvement from your physician, physical therapist or strainer tender. While completing these exercises, remember: Muscles can gain both the endurance and the strength needed for everyday activities through controlled exercises. Complete these exercises as instructed by your physician, physical therapist or strainer tender. Progress the resistance and repetitions only as guided. STRENGTH - Towel Curls Sit in a chair positioned on a non-carpeted surface. Place your foot on a towel, keeping your heel on the floor. Pull the towel toward your heel by only curling your toes. Keep your heel on the floor. If instructed by your physician, physical therapist or strainer tender, add at the end of the towel. Repeat times. Complete this exercise times per day. STRENGTH - Ankle Inversion Secure one end of a rubber exercise band/tubing to a fixed object (table, pole). Loop the other end around your foot just before your toes. Place your fists between your knees. This will focus your strengthening at your ankle. Slowly, pull your big toe up and in, making sure the band/tubing is positioned to resist the entire motion. Hold this position for seconds. Have your muscles resist the band/tubing as it slowly pulls your foot back to the starting position. Repeat times. Complete this exercises times per day. Document Released: 04/19/2006 Document Revised: 07/11/2012 Document Reviewed: ExitCare Patient Information 2015 [employer] [facility]. This information is not intended to replace advice given to you by your health care provider. Make sure you discuss any questions you have with your health care provider. Musculoskeletal Plantar Fasciitis Plantar fasciitis is a common condition that causes foot pain. It is soreness ( inflammation) of the band of tough fibrous tissue on the bottom of the foot that runs from the heel bone (calcaneus) to the ball of the foot. The cause of this soreness may be from excessive standing, poor fitting shoes, running on hard surfaces, being overweight, having an abnormal walk, or overuse (this is common in runners) of the painful foot or feet. It is also common in aerobic exercise dancers and ballet dancers. SYMPTOMS Most people with plantar fasciitis complain of: Severe pain in the morning on the bottom of their foot especially when taking the first steps out of bed. This pain recedes after a few minutes of walking. Severe pain is experienced also during walking following a long period of inactivity. Pain is worse when walking barefoot or up stairs DIAGNOSIS Your caregiver will diagnose this condition by examining and feeling your foot. Special tests such as X-rays of your foot, are usually not needed. PREVENTION Consult a sports medicine professional before beginning a new exercise program. Walking programs offer a good workout. With walking there is a lower chance of overuse injuries common to runners. There is less impact and less jarring of the joints. Begin all new exercise programs slowly. If problems or pain develop, decrease the amount of time or distance until you are at a comfortable level. Wear good shoes and replace them regularly. Stretch your foot and the heel cords at the back of the ankle (Achilles tendon) both before and after exercise. Run or exercise on even surfaces that are not hard. For example, asphalt is better than pavement. Do not run barefoot on hard surfaces. If using a treadmill, vary the incline. Do not continue to workout if you have foot or joint problems. Seek professional help if they do not improve. HOME CARE INSTRUCTIONS Avoid activities that cause you pain until you recover. Use ice or cold packs on the problem or painful areas after working out. Only take [id number] or prescription medicines for pain, discomfort, or fever as directed by your caregiver. Soft shoe inserts or athletic shoes with air or gel sole cushions may be helpful. If problems continue or become more severe, consult a sports medicine caregiver or your own health care provider. Cortisone is a potent anti- inflammatory medication that may be injected into the painful area. You can discuss this treatment with your caregiver. MAKE SURE YOU: Understand these instructions. Will watch your condition. Will get help right away if you are not doing well or get worse. Document Released: 01/12/2002 Document Revised: 07/11/2012 Document Reviewed: ExitCare Patient Information 2015 [facility]. This information is not intended to replace advice given to you by your health care provider. Make sure you discuss any questions you have with your health care provider. No follow up information was provided.
--- OUTSIDE RECORDS SUMMARY | 2016-09-04 11:30 | XMS REPORT | Referral Summary ---
Author Author [facility], Family Medicine Organization [facility] Address Unknown Phone Unavailable Care Team Providers Care Recreational Counselor Name Role Phone John Santos Primary Care Physician [phone] Encounter VC Date(s): 03/09/16 - 03/09/16 [facility] Adame Newton, [address] [place] [address] Discharge Diagnosis: HTN (hypertension) Discharge Diagnosis: Diabetes type 2, uncontrolled Discharge Disposition: 01-Home or Self Care Attending Physician: John Santos DO Vital Signs Most recent to 1 oldest [Reference Range]: Temperature Tympanic 36.2 degC [36.6-38.1 degC] *LOW* (03/09/16 10:31 AM) Peripheral Pulse 78 bpm Rate [60-100 bpm] (03/09/16 10:31 AM) Blood Pressure 165/75 mmHg [90-140/60-90 mmHg] *HI* (03/09/16 10:31 AM) Problem List Condition Effective Dates Status Health Status Informant Diabetes type II Active NOS(Confirmed) Hypertension(Confirm Active ed) Trasient memory Active impairment(Confirmed ) Prostatism(Confirmed Active ) PURE Active HYPERCHOLESTEROLEMIA (Confirmed) Scarlet Active fever(Confirmed) Skin Active cancer(Confirmed) Allergies, Adverse Reactions, Alerts No Known Medication Allergies Medications bisoprolol-hydrochlorothiazide 10 mg-6.25 mg oral tablet See Instructions, TAKE 1 TABLET DAILY, # 90 tabs, 2 Refill(s), [facility], TAKE 1 TABLET DAILY Start Date: 02/03/16 Status: Ordered Glucometer strips (DME) DME Item Test Blood Sugars fasting and after evening meal daily. Diag E11.9 One touch ultra blue or comparable strips. [employer], See Instructions, # 3 boxes, 2 Refill(s), Pharmacy: [facility], Test Blood Sugars fasting and after... Start Date: 06/18/15 Status: Ordered Insulin Pin [place] (DME) DME Item novolog mix 70-30 flexpen E11.9 inject 48 U in AM and 40 U in PM- insulin BID Patient needs 90d supply, See Instructions, # 6 boxes, 0 Refill(s) , Pharmacy: [facility], novolog mix 70-30 flexpen E11.9 inject 48 U in AM... Start Date: 06/12/15 Status: Ordered lisinopril 40 mg oral tablet 40 mg 1 tabs, Oral, Daily, # 90 tabs, 1 Refill(s), Pharmacy: [facility] Start Date: 06/06/15 Stop Date: 12/03/15 Status: Ordered Miscellaneous DME DME Item TEST BLOOD SUGARS FASTING AND AFTER EVENING MEAL DAILY. Dx: E11.9 ONE STEP TEST STRIPS, See Instructions, # 1 Each, 0 Refill(s), Pharmacy: [facility], TEST BLOOD SUGARS FASTING AND AFTER EVENING MEAL DAILY. Dx: E11.9;... Start Date: 02/25/15 Status: Ordered Miscellaneous DME DME Item BD Ultra Fine Pen [place] Short 90 Day Supply BID, See Instructions , # 180 Each, 3 Refill(s), Pharmacy: [facility], BD Ultra Fine Pen [place]; Short; 90 Day Supply; BID, Supply, DX - 250.00 Start Date: 11/19/14 Status: Ordered Miscellaneous DME DME Item Contour test strips Test blood sugars fasting and after evening meal daily DX: 250.00, See Instructions, # 3 boxes, 0 Refill(s), Pharmacy: [facility], Contour test strips; Test blood sugars fasting and after evening meal... Start Date: 03/12/14 Status: Ordered multivitamins oral tablet 1 tabs, Oral, Daily, # 30 tabs, 0 Refill(s) Start Date: 10/13/13 Status: Ordered Norvasc 5 mg oral tablet 5 mg 1 tabs, Oral, Daily, # 30 tabs, 0 Refill(s), Pharmacy: [facility], 1 tabs Oral Daily Start Date: 08/06/15 Status: Ordered NovoLOG Mix 70/30 FlexPen subcutaneous suspension See Instructions, INJECT 48 UNITS IN THE MORNING AND 40 UNITS IN THEEVENING , # 90 mL, 3 Refill(s), eRx: [facility], INJECT 48 UNITS IN THE MORNING AND 40 UNITS IN THEEVENING Start Date: 10/02/15 Status: Ordered simvastatin 10 mg oral tablet 10 mg 1 tabs, Oral, Bedtime (once a day), # 90 tabs, 1 Refill(s), Pharmacy: [facility], 1 tabs Oral Bedtime (once a day) Start Date: 06/06/15 Status: Ordered Synthroid 25 mcg (0.025 mg) oral tablet See Instructions, TAKE 1 TABLET DAILY, # 90 tabs, 2 Refill(s), eRx: [facility], TAKE 1 TABLET DAILY Start Date: 02/03/16 Status: Ordered Ultra Thin Lancets Ultra Thin Lancets, test, Topical, QID, Test Blood sugars fasting and 2 hours after meals daily(QID) DX: E11.9, # 100 Each, 0 Refill(s), Pharmacy: [facility], DX - 250.00, test Topical QID,Instr:Test Blood sugars fasting and 2 h... Start Date: 02/25/15 Status: Ordered Results Chemistry Most recent to 1 oldest [Reference Range]: Hgb A1c [4.1-5.6 %] 6.1 % *HI* (03/09/16 11:20 AM) eAvg Glucose 128.4 mg/dL (03/09/16 11:20 AM) Immunizations Vaccine Date Refusal Reason influenza virus [...] Title: Office Visit Note Author: John Santos Date: 03/09/16 Assessment/Plan Diabetes type 2, uncontrolled 1. Recheck A1c today. 2. We will adjust his medications accordingly. Ordered: Hemoglobin A1c Office Visit Level 4 Est 07079 HTN (hypertension) 1. I personally rechecked his blood pressure today and it was 142/72 2. Low salt diet recommended 3. Follow-up in 2 months for reevaluation 4. No change in medications at this time.
--- OUTSIDE RECORDS SUMMARY | 2016-09-04 11:30 | XMS REPORT | Referral Summary ---
Author Author [facility] Ad[facility], Family Medicine Organization [facility] Address Unknown Phone Unavailable Care Team Providers Care Narrow Fabric Calenderer Name Role Phone John Santos Primary Care Physician [phone] Encounter VC Date(s): 04/03/16 - 04/03/16 [facility] GILBERT[facility] Adame Newton, [address] [place] [address] Discharge Diagnosis: Confusion state Discharge Disposition: 01-Home or Self Care Attending Physician: John Santos DO Admitting Physician: John Santos DO Vital Signs Most recent to 1 oldest [Reference Range]: Temperature Tympanic 36.8 degC [36.6-38.1 degC] (04/03/16 3:18 PM) Peripheral Pulse 80 bpm Rate [60-100 bpm] (04/03/16 3:18 PM) Blood Pressure 151/80 mmHg [90-140/60-90 mmHg] *HI* (04/03/16 3:18 PM) Problem List Condition Effective Dates [...] DAILY, # 90 tabs, 2 Refill(s), eRx: [email or web address], TAKE 1 TABLET DAILY Start Date: 02/03/16 Status: Ordered Glucometer strips (DME) DME Item Test Blood Sugars fasting and after evening meal daily. Diag E11.9 One touch ultra blue or comparable strips. [employer], See Instructions, # 3 boxes, 2 Refill(s), [facility], Test Blood Sugars fasting and after... Start Date: 06/18/15 Status: Ordered Insulin Pin [place] (DME) DME Item novolog mix 70-30 flexpen E11.9 inject 48 U in AM and 40 U in PM- insulin BID Patient needs 90d supply, See Instructions, # 6 boxes, 0 Refill(s) , Pharmacy: [facility], novolog mix 70-30 flexpen E11.9 [...] DME DME Item BD Ultra Fine Pen [place] Short 90 Day Supply BID, See Instructions , # 180 Each, 3 Refill(s), Pharmacy: [facility], BD Ultra Fine Pen [place]; Short; 90 Day Supply; BID, Supply, DX - 250.00 Start Date: 11/19/14 Status: Ordered Miscellaneous DME DME Item Contour test strips Test blood sugars fasting and after evening meal daily DX: 250.00, See Instructions, # 3 boxes, 0 Refill(s), [facility]acy: [facility], Contour test strips; Test blood sugars fasting and after evening meal... Start Date: 03/12/14 Status: Ordered multivitamins oral tablet 1 tabs, Oral, Daily, # 30 tabs, 0 Refill(s) Start Date: 10/13/13 Status: Ordered NovoLOG Mix 70/30 FlexPen subcutaneous suspension See Instructions, INJECT 48 UNITS IN THE MORNING AND 40 UNITS IN THEEVENING , # 90 mL, 3 Refill(s), eRx: [facility], INJECT 48 UNITS IN THE MORNING [...] DAILY, # 90 tabs, 2 Refill(s), eRx: [facility], TAKE 1 TABLET DAILY Start Date: 02/03/16 Status: Ordered Ultra Thin Lancets Ultra Thin Lancets, test, Topical, QID, Test Blood sugars fasting and 2 hours after meals daily(QID) DX: E11.9, # 100 Each, 0 Refill(s), Pharmacy: [facility], DX - 250.00, test Topical QID,Instr:Test Blood sugars fasting and 2 h... Start Date: 02/25/15 Status: Ordered Results Hematology Most recent to 1 oldest [Reference Range]: WBC [5.0-10.0 10.3 10*3/uL 10*3/uL] *HI* (04/03/16 4:14 PM) RBC [3.70-5.20] 4.21 (04/03/16 4:14 PM) Hgb [12.0-16.0 14.0 gm/dL gm/dL] (04/03/16 4:14 PM) Hct [40.0-54.0 %] 40.0 % (04/03/16 4:14 PM) MCV [80.0-96.0 fL] 95.0 fL (04/03/16 4:14 PM) MCH [26.0-34.0 pg] 33.3 pg (04/03/16 4:14 PM) MCHC [32.0-36.0 35.0 gm/dL gm/dL] (04/03/16 4:14 PM) RDW [0.0-14.5 %] 12.6 % (04/03/16 4:14 PM) Platelet [150-400 235 10*3/uL 10*3/uL] (04/03/16 4:14 PM) MPV [8.8-14.8 fL] 8.8 fL (04/03/16 4:14 PM) Neutrophils [50-70 60 % %] (04/03/16 4:14 PM) Lymphocytes [20-40 28 % %] (04/03/16 4:14 PM) Monocytes [4-8 %] 10 % *HI* (04/03/16 4:14 PM) Eosinophils [0-6 %] 2 % (04/03/16 4:14 PM) Basophils [0-2 %] 0 % (04/03/16 4:14 PM) Neutro Absolute 6.21 10*3 [2.50-7.00 10*3] (04/03/16 4:14 PM) Lymph Absolute 2.86 10*3 [1.00-4.00 10*3] (04/03/16 4:14 PM) [place] Absolute 1.00 10*3 [0.20-0.80 10*3] *HI* (04/03/16 4:14 PM) Eos Absolute 0.19 10*3 [0.00-0.60 10*3] (04/03/16 4:14 PM) Baso Absolute 0.03 [0.00-0.30] (04/03/16 4:14 PM) Chemistry Most recent to 1 oldest [Reference Range]: Sodium Venous 138 mmol/L [136-144 mmol/L] (04/03/16 4:14 PM) Potassium Venous 4.1 mmol/L 1 [3.6-5.1 mmol/L] (04/03/16 4:14 PM) Calcium Ionized 1.22 mmol/L Venous [1.19-1.41 (04/03/16 4:14 PM) mmol/L] Total CO2 Venous 23 mmol/L [25-29 mmol/L] *LOW* (04/03/16 4:14 PM) Glucose Venous 185 mg/dL [70-100 mg/dL] *HI* (04/03/16 4:14 PM) BUN Venous [4-20] 33 *HI* (04/03/16 4:14 PM) Creatinine Venous 1.6 mg/dL [0.7-1.2 mg/dL] *HI* (04/03/16 4:14 PM) Venous CL [99-109 97 mmol/L mmol/L] *LOW* (04/03/16 4:14 PM) 1Result Comment: This test was performed on a whole blood specimen. The presence or absence of hemolysis cannot be assessed. Hemolysis can falsely elevate potassium levels. Normals are for venous specimens only. Urinalysis Most recent to 1 oldest [Reference Range]: UA Color Yellow (04/03/16 4:23 PM) UA Appear Clear (04/03/16 4:23 PM) UA pH [5.0-8.0] 5.5 (04/03/16 4:23 PM) UA Leuk Est Negative [Negative] (04/03/16 4:23 PM) UA Nitrite Negative [Negative] (04/03/16 4:23 PM) UA Protein Pos 2+ [Negative] *ABN* (04/03/16 4:23 PM) UA Glucose Trace [Negative] *ABN* (04/03/16 4:23 PM) UA Ketones Negative [Negative] (04/03/16 4:23 PM) UA Urobilinogen 0.2 mg/dL [<=1.0 mg/dL] (04/03/16 4:23 PM) UA Bili [Negative] Negative (04/03/16 4:23 PM) UA Blood [Negative] Pos 3+ *ABN* (04/03/16 4:23 PM) UA Spec Grav 1.025 [1.003-1.030] (04/03/16 4:23 PM) Type Voided (04/03/16 4:23 PM) UA WBC [0-4] 0-2 (04/03/16 4:23 PM) UA RBC [0-2] 2-5 (04/03/16 4:23 PM) Epithelial Cells 0-2 (04/03/16 4:23 PM) Immunizations Vaccine Date Refusal Reason influenza virus [...] Colonoscopy 2006 Removal of cancer from scalp 1994 Hospital admission - scarlet fever 1935 Social History Social History Type Response Smoking Status Never smoker Assessment and Plan Extracted from: Title: Office Visit Note Author: John Santos DO Date: 04/03/16 Assessment/Plan Confusion state 1. EKG sinus rhythm with a rate of 66 and first degree AV block. He has T-wave inversions in leads 2, [address] segment elevation or depression. 2. CBC demonstrated white count of 10.3 rest of his blood count was essentially normal. 3. Sodium was 138, potassium was 4.1, bicarbonate was 23, glucose was 185, BUN was 33 creatinine was 1.6 4. His UA was negative for urinary tract infection however he had +2 protein and +3 of blood. Specific gravity was 1.025 consistent with urine concentration. 5. Is slightly elevated white blood cells raises concern for early infectious process although his upper airway, lower airway were essentially normal and his UA was consistent with urinary tract infection. I suspect this is early stage of upper respiratory tract viral infection. 6. I had a long discussion with the patient and family members who were present. If he has recurrent confusion, then my recommendation is to take him to the emergency department for evaluation. Patient and family members voiced understanding. 7. Differential diagnosis for this confusion could be TIA versus arrhythmia versus ME versus mild dehydration. This was discussed in detail with the patient and his family member. Ordered: CBC w/ Differential EKG with Interpretation 24708 Metabolic Panel i-STAT Urinalysis with Culture if Indicated
--- OUTSIDE RECORDS SUMMARY | 2016-09-04 11:30 | XMS REPORT | Referral Summary ---
Author Organization Unknown Address Unknown Phone Unavailable Care Team Providers Care Business Continuity Consultant Name Role Phone Helen Turner Primary Care Physician [phone] Encounter VC Date(s): 05/18/14 - 05/18/14 [facility] Adame, Steve, Internal Medicine [address] [place] [address] Dr [place] [id number] Discharge Diagnosis: Diabetic neuropathy Discharge Diagnosis: Diabetes type II NOS Discharge Diagnosis: PURE HYPERCHOLESTEROLEMIA Discharge Diagnosis: Hypothyroidism Discharge Diagnosis: History of TIAs Discharge Diagnosis: Anticoagulation adequate with anticoagulant therapy Discharge Diagnosis: Chronic kidney disease, stage III (moderate) Discharge Diagnosis: Hypertension Discharge Disposition: Home or Self Care Attending Physician: Garfield Turner MD Admitting Physician: Garfield Turner MD Vital Signs Most recent to 1 oldest [Reference Range]: Temperature Tympanic 35.7 degC [36.6-38.1 degC] *LOW* (05/18/14 8:17 AM) Peripheral Pulse 61 bpm Rate [60-100 bpm] (05/18/14 8:17 AM) Respiratory Rate 14 br/min [14-20 br/min] (05/18/14 8:17 AM) Blood Pressure 120/72 mmHg [90-140/60-90 mmHg] (05/18/14 8:17 AM) Most recent to 1 oldest [Reference Range]: SpO2 96 % (05/18/14 8:17 AM) Problem List Condition Effective Dates Status Health Status Informant Diabetes type II Active NOS(Confirmed) Hypertension(Confirm Active ed) Trasient memory Active impairment(Confirmed ) Prostatism(Confirmed Active ) PURE Active HYPERCHOLESTEROLEMIA (Confirmed) Scarlet Active fever(Confirmed) Skin Active cancer(Confirmed) Allergies, Adverse Reactions, Alerts No Known Medication Allergies Medications Glucometer strips (DME) DME Item Test Blood Sugars fasting and after evening meal daily 250.00 Contour strips. [employer], See Instructions, # 3 boxes, 3 Refill(s), Pharmacy: [facility], Test Blood Sugars fasting and after evening meal daily 250.00 Contour s... Special Instructions: Test Blood Sugars fasting and after evening meal daily 250.00 Contour strips. [employer] Start Date: 05/07/14 Status: Ordered Insulin Pin [place] (DME) DME Item novolog mix 70-30 flexpen 250.00 inject 48 U in AM and 40 U in PM- insulin BID Patient needs 90d supply, See Instructions, # 6 boxes, 0 Refill(s) , Pharmacy: [facility], novolog mix 70-30 flexpen 250.00 inject 48 U in AM... Special Instructions: novolog mix 70-30 flexpen 250.00 inject 48 U in AM and 40 U in PM- insulin BID Patient needs 90d supply Start Date: 05/18/14 Status: Ordered levothyroxine 25 mcg (0.025 mg) oral tablet 1 tabs, Oral, Daily, # 90 tabs, 0 Refill(s), Pharmacy: [facility], 1 tabs Oral Daily Start Date: 05/07/14 Status: Ordered lisinopril 20 mg oral tablet 1 tabs, Oral, BID, # 180 tabs, 0 Refill(s), Pharmacy: [facility] Start Date: 05/07/14 Status: Ordered Miscellaneous DME DME Item Contour test strips Test blood sugars fasting and after evening meal daily DX: 250.00, See Instructions, # 3 boxes, 0 Refill(s), Pharmacy: [facility], Contour test strips; Test blood sugars fasting and after evening meal... Special Instructions: Contour test strips Test blood sugars fasting and after evening meal daily DX: 250.00 Start Date: 03/12/14 Status: Ordered Miscellaneous DME DME Item BD Ultra Fine Pen [place] Short 90 Day Supply BID, See Instructions , # 180 Each, 0 Refill(s), Pharmacy: [facility], BD Ultra Fine Pen [place]; Short; 90 Day Supply; BID, Supply Special Instructions: BD Ultra Fine Pen [place] Short 90 Day Supply BID Start Date: 05/07/14 Status: Ordered multivitamins oral tablet 1 tabs, Oral, Daily, # 30 tabs, 0 Refill(s) Start Date: 10/13/13 Status: Ordered simvastatin 10 mg oral tablet 1 tabs, Oral, Bedtime (once a day), # 90 tabs, 0 Refill(s), [facility], 1 tabs Oral Bedtime (once a day) Start Date: 05/07/14 Status: Ordered Ultra Thin Lancets Ultra Thin Lancets, test, Topical, QID, Test Blood sugars fasting and 2 hours after meals daily(QID), 0 Refill(s) Special Instructions: Test Blood sugars fasting and 2 hours after meals daily( QID) Start Date: 10/13/13 Status: Ordered warfarin 1 mg oral tablet 1 tabs, Oral, Daily, As directed by physcian according to INR, # 270 tabs, 0 Refill(s), [facility], 1 tabs Oral Daily,Instr: As directed by physcian according to INR Special Instructions: As directed by physcian according to INR Start Date: 05/10/14 Status: Ordered warfarin 5 mg oral tablet 1 tabs, Oral, Daily, As directed by physcian according to INR, # 90 tabs, 0 Refill(s), [facility], 1 tabs Oral Daily,Instr: As directed by physcian according to INR Special Instructions: As directed by physcian according to INR Start Date: 05/07/14 Status: Ordered Ziac 5 mg-6.25 mg oral tablet 1 tabs, Oral, BID, # 180 tabs, 0 Refill(s), [facility] Start Date: 05/07/14 Status: Ordered Results No data available for [...] smoker Assessment and Plan Extracted from: Title: Ambulatory Patient Education Author: Garfield Turner MD Date: Family Medicine Diabetes and Exercise Regular exercise is important and can help: Control blood glucose (sugar ). Decrease blood pressure. Control blood lipids (cholesterol, triglycerides ). Improve overall health. BENEFITS FROM EXERCISE Improved fitness. Improved flexibility. Improved endurance. Increased bone density. Weight control. Increased muscle strength. Decreased body fat. Improvement of the body's use of insulin, a hormone. Increased insulin sensitivity. Reduction of insulin needs. Reduced stress and tension. Helps you feel better. People with diabetes who add exercise to their lifestyle gain additional benefits, including: Weight loss. Reduced appetite. Improvement of the body's use of blood glucose. Decreased risk factors for heart disease: Lowering of cholesterol and triglycerides. Raising the level of good cholesterol (high-density lipoproteins, HDL ). Lowering blood sugar. Decreased blood pressure. TYPE 1 DIABETES AND EXERCISE Exercise will usually lower your blood glucose. If blood glucose is greater than 240 mg/dl, check urine ketones. If ketones are present, do not exercise. Location of the insulin injection sites may need to be adjusted with exercise. Avoid injecting insulin into areas of the body that will be exercised. For example, avoid injecting insulin into: The arms when playing tennis. The legs when jogging. For more information, discuss this with your caregiver. Keep a record of: Food intake. Type and amount of exercise. Expected peak times of insulin action. Blood glucose levels. Do this before, during, and after exercise. Review your records with your caregiver. This will help you to develop guidelines for adjusting food intake and insulin amounts. TYPE 2 DIABETES AND EXERCISE Regular physical activity can help control blood glucose. Exercise is important because it may: Increase the body's sensitivity to insulin. Improve blood glucose control. Exercise reduces the risk of heart disease. It decreases serum cholesterol and triglycerides. It also lowers blood pressure. Those who take insulin or oral hypoglycemic agents should watch for signs of hypoglycemia. These signs include dizziness, shaking, sweating, chills, and confusion. Body water is lost during exercise. It must be replaced. This will help to avoid loss of body fluids (dehydration ) or heat stroke. Be sure to talk to your caregiver before starting an exercise program to make sure it is safe for you. Remember, any activity is better than none. Document Released: 07/09/2004 Document Revised: 07/11/2012 Document Reviewed: [facility] Patient Information 2014 [employer]. Follow Up With: Where: When: Garfield Turner [address] [place] [address]; Via [facility] [place] Wilson [phone] Business (2) In 3 months 08/16/2014 Comments: Extracted from: Title: Office Visit Note Author: Garfield Turner MD Date: 05/18/14 Assessment/Plan Anticoagulation adequate with anticoagulant therapy He has been on any coagulation therapy for about 6 months. He wanted to continue this at the present time since he had some medications were ordered. He will plan to discontinue Coumadin after his prescription runs out. Ordered: Office Visit Level 4 Est 87645 Chronic kidney disease, stage III (moderate) He will continue his same medication Ordered: Office Visit Level 4 Est 53437 Diabetes type II NOS Lab will be rechecked in July. Ordered: Office Visit Level 4 Est 66821 Diabetic neuropathy His condition in this regard is unchanged. Ordered: Office Visit Level 4 Est 47975 History of TIAs He will be considered for restarting Plavix after he is off Coumadin. Ordered: Office Visit Level 4 Est 91400 Hypertension This is well controlled. He will continue his same medication. Ordered: Office Visit Level 4 Est 05276 Hypothyroidism He will continue his same medication. Ordered: Office Visit Level 4 Est 67693 PURE HYPERCHOLESTEROLEMIA Laboratory rechecked in July. Ordered: Office Visit Level 4 Est 49087 Orders: [employer] Rx, DME Item novolog mix 70-30 flexpen 250.00 inject 48 U in AM and 40 U in PM- insulin BID Patient needs 90d supply, See Instructions, # 6 boxes, 0 Refill(s), Pharmacy: [facility], novolog mix 70-30 flexpen 250.00 inject 48 U in AM... Creatine Kinase Hemoglobin A1c Hepatic Function Panel LDL Direct
--- OUTSIDE RECORDS SUMMARY | 2016-09-04 11:30 | XMS REPORT | Referral Summary ---
Author Author [facility]IL[facility] Adame [facility], Family [facility] Organization [facility] GILBERT[facility] Adame [facility], 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 Role Phone John Santos Primary Care Physician [phone] Encounter VC Date(s): 12/11/15 - 12/11/15 [facility] GILBERTO Adame Newton, [address] [place] [address]- Discharge Disposition: 01-Home or Self Care Attending Physician: John Santos DO Admitting Physician: John Santos DO Vital Signs Most recent to 1 oldest [Reference Range]: Temperature Tympanic 36.9 degC [36.6-38.1 degC] (12/11/15 2:13 PM) Peripheral Pulse 75 bpm Rate [60-100 bpm] (12/11/15 2:13 PM) Respiratory Rate 17 br/min [14-20 br/min] (12/11/15 2:13 PM) Blood Pressure 150/70 mmHg [90-140/60-90 mmHg] *HI* (12/11/15 2:13 PM) SpO2 96 % (12/11/15 2:13 PM) Problem List Condition Effective Dates Status [...] One touch ultra blue or comparable strips. [employer], See Instructions, # 3 boxes, 2 Refill(s), [facility], Test Blood Sugars fasting and after... Start Date: 06/18/15 Status: Ordered Insulin Pin [place] (DME) DME Item novolog mix 70-30 flexpen E11.9 inject 48 U in AM and 40 U in PM- insulin BID Patient needs 90d supply, See Instructions, # 6 boxes, 0 Refill(s) , Pharmacy: [facility], novolog mix 70-30 flexpen E11.9 inject 48 U in AM... Start Date: 06/12/15 Status: Ordered levothyroxine 25 mcg (0.025 mg) oral tablet 25 mcg 1 tabs, Oral, Daily, # 90 tabs, 1 Refill(s), Pharmacy: [facility], 1 tabs Oral Daily Start Date: 06/06/15 Status: Ordered lisinopril 40 mg oral tablet 40 mg 1 tabs, Oral, Daily, # 90 tabs, 1 Refill(s), Pharmacy: [facility] Start Date: 06/06/15 Stop Date: 12/03/15 Status: Ordered Miscellaneous DME DME Item TEST BLOOD SUGARS FASTING AND AFTER EVENING MEAL DAILY. Dx: E11.9 ONE STEP TEST STRIPS, See Instructions, # 1 Each, 0 Refill(s), Pharmacy: [facility], TEST BLOOD SUGARS FASTING AND AFTER EVENING MEAL DAILY. Dx: E11.9;... Start Date: 02/25/15 Status: Ordered Miscellaneous DME DME Item BD Ultra Fine Pen [place] Short 90 Day Supply BID, See Instructions , # 180 Each, 3 Refill(s), Pharmacy: [facility], BD Ultra Fine Pen [place]; Short; 90 Day Supply; BID, Supply, DX - 250.00 Start Date: 11/19/14 Status: Ordered Miscellaneous DME DME Item Contour test strips Test blood sugars fasting and after evening meal daily DX: 250.00, See Instructions, # 3 boxes, 0 Refill(s), [facility]: [facility], Contour test strips; Test blood sugars fasting and after evening meal... Start Date: 03/12/14 Status: Ordered multivitamins oral tablet 1 tabs, Oral, Daily, # 30 tabs, 0 Refill(s) Start Date: 10/13/13 Status: Ordered Norvasc 5 mg oral tablet 5 mg 1 tabs, Oral, Daily, # 30 tabs, 0 Refill(s), Pharmacy: [facility], 1 tabs Oral Daily Start Date: 08/06/15 Status: Ordered NovoLOG Mix 70/30 FlexPen subcutaneous suspension See Instructions, INJECT 48 UNITS IN THE MORNING AND 40 UNITS IN THEEVENING , # 90 mL, 3 Refill(s), eRx: [facility], INJECT 48 UNITS IN THE MORNING AND 40 UNITS IN THEEVENING Start Date: 10/02/15 Status: Ordered simvastatin 10 mg oral tablet 10 mg 1 tabs, Oral, Bedtime (once a day), # 90 tabs, 1 Refill(s), Pharmacy: [facility], 1 tabs Oral Bedtime (once a day) Start Date: 06/06/15 Status: Ordered Ultra Thin Lancets Ultra Thin Lancets, test, Topical, QID, Test Blood sugars fasting and 2 hours after meals daily(QID) DX: E11.9, # 100 Each, 0 Refill(s), Pharmacy: [facility], DX - 250.00, test Topical QID,Instr:Test Blood sugars fasting and 2 h... 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 Pathophysiology of this presentation discussed in detail with the patient and his daughter, all questions were answered. 2. Low salt diet recommended. 3. Avoid NSAIDs. 4. Lisinopril was decreased to 20 mg daily. 5. Follow-up in a month for reevaluation of his blood pressure. Ordered: Office Visit Level 3 Est 64589
--- OUTSIDE RECORDS SUMMARY | 2016-09-04 11:30 | XMS REPORT | Referral Summary ---
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 Name Role Phone John Santos Primary Care Physician [phone] Encounter VC Date(s): 06/06/15 - 06/06/15 [facility], Family [address] [place] [id number] Discharge Disposition: 01-Home or Self Care Attending Physician: John Santos DO Admitting Physician: John Santos DO Vital Signs Most recent to 1 oldest [Reference Range]: Peripheral Pulse 70 bpm Rate [60-100 bpm] (06/06/15 9:34 AM) Blood Pressure 150/80 mmHg [90-140/60-90 mmHg] *HI* (06/06/15 9:34 AM) SpO2 98 % (06/06/15 9:34 AM) Problem List Condition Effective Dates Status Health Status Informant Diabetes type II Active NOS(Confirmed) Hypertension(Confirm Active ed) Trasient memory Active impairment(Confirmed ) Prostatism(Confirmed Active ) PURE Active HYPERCHOLESTEROLEMIA (Confirmed) Scarlet Active fever(Confirmed) Skin Active cancer(Confirmed) Allergies, Adverse Reactions, Alerts No Known Medication Allergies Medications Glucometer strips (DME) DME Item Test Blood Sugars fasting and after evening meal daily 250.00 Contour strips. [employer], See Instructions, # 3 boxes, 3 Refill(s), Pharmacy: [facility], Test Blood Sugars fasting and after evening meal daily 250.00 Contour... Start Date: 11/19/14 Status: Ordered Insulin [place] (DME) DME Item novolog mix 70-30 flexpen E11.9 inject 48 U in AM and 40 U in PM- insulin BID Patient needs 90d supply, See Instructions, # 6 boxes, 0 Refill(s) , Pharmacy: [facility], novolog mix 70-30 flexpen E11.9 inject 48 U in AM... Start Date: 02/25/15 Status: Ordered levothyroxine 25 mcg (0.025 mg) oral tablet 25 mcg 1 tabs, Oral, Daily, # 90 tabs, 1 Refill(s), Pharmacy: [facility], 1 tabs Oral Daily Start Date: 06/06/15 Status: Ordered lisinopril 40 mg oral tablet 40 mg 1 tabs, Oral, Daily, # 90 tabs, 1 Refill(s), Pharmacy: [facility] Start Date: 06/06/15 Stop Date: 12/03/15 Status: Ordered Miscellaneous DME DME Item TEST BLOOD SUGARS FASTING AND AFTER EVENING MEAL DAILY. Dx: E11.9 ONE STEP TEST STRIPS, See Instructions, # 1 Each, 0 Refill(s), Pharmacy: [facility], TEST BLOOD SUGARS FASTING AND AFTER EVENING MEAL DAILY. Dx: E11.9;... Start Date: 02/25/15 Status: Ordered Miscellaneous DME DME Item BD Ultra Fine [place] Short 90 Day Supply BID, See Instructions , # 180 Each, 3 Refill(s), Pharmacy: [facility], BD Ultra Fine [place]; Short; 90 Day Supply; BID, Supply, DX - 250.00 Start Date: 11/19/14 Status: Ordered Miscellaneous DME DME Item Contour test strips Test blood sugars fasting and after evening meal daily DX: 250.00, See Instructions, # 3 boxes, 0 Refill(s), Pharmacy: [facility], Contour test strips; Test blood sugars fasting and after evening meal... Start Date: 03/12/14 Status: Ordered multivitamins oral tablet 1 tabs, Oral, Daily, # 30 tabs, 0 Refill(s) Start Date: 10/13/13 Status: Ordered simvastatin 10 mg oral tablet 10 mg 1 tabs, Oral, Bedtime (once a day), # 90 tabs, 1 Refill(s), Pharmacy: [facility], 1 tabs Oral Bedtime (once a day) Start Date: 06/06/15 Status: Ordered Ultra Thin Lancets Ultra Thin Lancets, test, Topical, QID, Test Blood sugars fasting and 2 hours after meals daily(QID) DX: E11.9, # 100 Each, 0 Refill(s), Pharmacy: [facility], DX - 250.00, test Topical QID,Instr:Test Blood sugars fasting and 2 h... Start Date: 02/25/15 Status: Ordered Ziac 10 mg-6.25 mg oral tablet 1 tabs, Oral, Daily, # 90 tabs, 1 Refill(s), Pharmacy: [facility] Start Date: 06/06/15 Stop [...] 2007 Repeat patellar tendon attachement rt leg 2007 Rt leg, reattachment of quadriceps tendon 2007 with josafat Biopsy of prostate x2 2005 Colonoscopy 2005 Removal of cancer from scalp 1993 Hospital admission - scarlet fever 1935 Social History Social History Type Response Smoking Status Never smoker Assessment and Plan Extracted from: Title: Office Visit Note Author: John Santos DO Date: 06/06/15 Assessment/Plan Plantar fasciitis, left 1. Continue with stretching exercises as discussed at last office visit. Ordered: Office Visit Level 4 Est 03727 Right arm pain 1. This appears to be a soft tissue contusion. 2. Discontinue ibuprofen because of elevated blood pressures. 3. Tylenol 1000 mg every 8 hours as needed. Right shoulder pain 1. He demonstrates positive drop arm test. Finding can concerning for rotator cuff injury. 2. Continue with Tylenol as recommended above. 3. Referral to physical therapy for strengthening exercises. Uncontrolled hypertension 1. Discontinue NSAIDs. 2. Follow-up in a month for reevaluation. 3. Tylenol for discomfort. Ordered: Office Visit Level 4 Est 43611 Uncontrolled type 2 diabetes mellitus 1. Recommended decreasing his evening insulin by 2 units to avoid hypoglycemia. Continue with the same dose for the morning. 2. Follow-up in one month for reevaluation, he is to bring in his blood sugar readings for review. Ordered: Office Visit Level 4 Est 97165 Orders: hayleeoprolol-hydrochlorothiazide, 1 tabs, Oral, Daily, # 90 tabs, 1 Refill(s), Pharmacy: [facility] levothyroxine, 25 mcg 1 tabs, Oral, Daily, # 90 tabs, 1 Refill(s), Pharmacy: [facility], 1 tabs Oral Daily lisinopril, 40 mg 1 tabs, Oral, Daily, # 90 tabs, 1 Refill(s), Pharmacy: [facility] simvastatin, 10 mg 1 tabs, Oral, Bedtime (once a day), # 90 tabs, 1 Refill(s) , Pharmacy: [facility], 1 tabs Oral Bedtime (once a day)
--- OUTSIDE RECORDS SUMMARY | 2016-09-04 11:30 | XMS REPORT | Continuity of Care Document ---
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 Visit Date/Time Discharge Status Pt. Type Provider Facility Loc./Unit Complaint [id number] 06/30/2012 14:30:00 2012 23:59:59 CLS Outpatient Garfield Turner MD [facility]
--- OUTSIDE RECORDS SUMMARY | 2016-09-04 11:30 | XMS REPORT | Referral Summary ---
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 Discharge Diagnosis: CKD (chronic kidney disease), stage III Discharge Disposition: 01-Home or Self Care Attending Physician: Garfield Turner MD Admitting Physician: Garfield Turner MD Vital Signs Most recent to 1 oldest [Reference Range]: Temperature Tympanic 36.5 degC [36.6-38.1 degC] *LOW* (11/19/14 3:15 PM) Peripheral Pulse 63 bpm Rate [60-100 bpm] (11/19/14 3:15 PM) Respiratory Rate 16 br/min [14-20 br/min] (11/19/14 3:15 PM) Blood Pressure 142/70 mmHg [90-140/60-90 mmHg] *HI* (11/19/14 3:15 PM) SpO2 97 % (11/19/14 3:15 PM) Problem List Condition Effective Dates Status Health Status Informant Diabetes type II Active NOS(Confirmed) Hypertension(Confirm Active ed) Trasient memory Active impairment(Confirmed ) Prostatism(Confirmed Active ) PURE Active HYPERCHOLESTEROLEMIA (Confirmed) Scarlet Active fever(Confirmed) Skin Active cancer(Confirmed) Allergies, Adverse Reactions, Alerts No Known Medication Allergies Medications Glucometer strips (DME) DME Item Test Blood Sugars fasting and after evening meal daily 250.00 Contour strips. [employer], See Instructions, # 3 boxes, 3 Refill(s), Pharmacy: [facility], Test Blood Sugars fasting and after evening meal daily 250.00 Contour... Start Date: 11/19/14 Status: Ordered Insulin [place] (DME) DME Item novolog mix 70-30 flexpen [...] Daily, # 90 tabs, 1 Refill(s), Pharmacy: [id number], 1 tabs Oral Daily Start Date: 02/25/15 Status: Ordered lisinopril 20 mg oral tablet 20 mg 1 tabs, Oral, BID, # 180 tabs, 1 Refill(s), Pharmacy: [facility] Start Date: 02/25/15 Status: Ordered Miscellaneous DME DME Item TEST BLOOD SUGARS FASTING AND AFTER EVENING MEAL DAILY. Dx: E11.9 ONE STEP TEST STRIPS, See Instructions, # 1 Each, 0 Refill(s), Pharmacy: [facility], TEST BLOOD SUGARS FASTING AND AFTER EVENING MEAL DAILY. Dx: E11.9;... Start Date: 02/25/15 Status: Ordered Miscellaneous DME DME Item BD Ultra Fine Pen [place] Short 90 Day Supply BID, See Instructions , # 180 Each, 3 Refill(s), Pharmacy: [facility], BD Ultra Fine [place]; Short; 90 Day Supply; BID, Supply, DX - 250.00 Start Date: 11/19/14 Status: Ordered Miscellaneous DME DME Item Contour test strips Test blood sugars fasting and after evening meal daily DX: 250.00, See Instructions, # 3 boxes, 0 Refill(s), Pharmacy: [facility], Contour test strips; Test blood [...] BID, # 180 tabs, 1 Refill(s), Pharmacy: [facility] Start Date: 02/25/15 Status: Ordered Results Urinalysis Most recent to 1 oldest [Reference Range]: UA Color Yellow (11/19/14 4:00 PM) UA Appear Clear (11/19/14 4:00 PM) UA pH [5.0-8.0] 6.5 (11/19/14 4:00 PM) UA Leuk Est Negative [Negative] (11/19/14 4:00 PM) UA Nitrite Negative [Negative] (11/19/14 4:00 PM) UA Protein Pos 2+ [Negative] *ABN* (11/19/14 4:00 PM) UA Glucose Negative [Negative] (11/19/14 4:00 PM) UA Ketones Negative [Negative] (11/19/14 4:00 PM) UA Urobilinogen 1.0 mg/dL [<1.0 mg/dL] (11/19/14 4:00 PM) UA Bili [Negative] Negative (11/19/14 4:00 PM) UA Blood [Negative] Negative (11/19/14 4:00 PM) UA Spec Grav 1.018 [1.003-1.030] (11/19/14 4:00 PM) Type Clean Catch (11/19/14 4:00 PM) UA WBC [0-4] 0-2 (11/19/14 4:00 PM) UA RBC [0-4] 0-4 (11/19/14 4:00 PM) Epithelial Cells 0-2 (11/19/14 4:00 PM) UA Hyal Cast [0-3] 1-3 (11/19/14 4:00 PM) Immunizations Vaccine Date Refusal Reason influenza [...] scalp 1993 Hospital admission - scarlet fever 193 Social History Social History Type Response Smoking Status Never smoker Assessment and Plan Extracted from: Title: Ambulatory Patient Education Author: Garfield Turner MD Date: Family Medicine Diabetes and Exercise Exercising regularly is important. It is not just about losing weight. It has many health benefits, such as: Improving your overall fitness, flexibility, and endurance. Increasing your bone density. Helping with weight control. Decreasing your body fat. Increasing your muscle strength. Reducing stress and tension. Improving your overall health. People with diabetes who exercise gain additional benefits because exercise: Reduces appetite. Improves the body's use of blood sugar (glucose ). Helps lower or control blood glucose. Decreases blood pressure. Helps control blood lipids (such as cholesterol and triglycerides). Improves the body's use of the hormone insulin by: Increasing the body's insulin sensitivity. Reducing the body's insulin needs. Decreases the risk for heart disease because exercising: Lowers cholesterol and triglycerides levels. Increases the levels of good cholesterol (such as high-density lipoproteins [HDL]) in the body. Lowers blood glucose levels. YOUR ACTIVITY PLAN Choose an activity that you enjoy and set realistic goals. Your health care provider or inclusion paraeducator can help you make an activity plan that works for you. You can break activities into 2 or 3 sessions throughout the day. Doing so is as good as one long session. Exercise ideas include: Taking the dog for a walk. Taking the stairs instead of the elevator. Dancing to your favorite song. Doing your favorite exercise with a friend. RECOMMENDATIONS FOR EXERCISING WITH TYPE 1 OR TYPE 2 DIABETES Check your blood glucose before exercising. If blood glucose levels are greater than 240 mg/dL, check for urine ketones. Do not exercise if ketones are present. Avoid injecting insulin into areas of the body that are going to be exercised. For example, avoid injecting insulin into: The arms when playing tennis. The legs when jogging. Keep a record of: Food intake before and after you exercise. Expected peak times of insulin action. Blood glucose levels before and after you exercise. The type and amount of exercise you have done. Review your records with your health care provider. Your health care provider will help you to develop guidelines for adjusting food intake and insulin amounts before and after exercising. If you take insulin or oral hypoglycemic agents, watch for signs and symptoms of hypoglycemia. They include: Dizziness. Shaking. Sweating. Chills. Confusion. Drink plenty of water while you exercise to prevent dehydration or heat stroke. Body water is lost during exercise and must be replaced. Talk to your health care provider before starting an exercise program to make sure it is safe for you. Remember, almost any type of activity is better than none. Document Released: 07/09/2004 Document Revised: 12/20/2013 Document Reviewed: [facility] Patient Information 2014 [employer]. Follow Up With: Where: When: Garfield Turner [address] [place] [address] Drive; [place] [address] Business (1) In 4 months 03/22/2015 Comments: Extracted from: Title: Office Visit Note Author: Garfield Turner MD Date: 11/19/14 Assessment/Plan CKD (chronic kidney disease), stage III Lab will be scheduled in December. Diabetes Lab will be rechecked in December. Ordered: Albumin/Creatinine Ratio, Urine Hemoglobin A1c Diabetic neuropathy His condition is unchanged in this regard. Essential hypertension He will continue his same medication. Hematuria He describes possibly having hematuria. Urinalysis will be checked. 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 He does not have evidence of postphlebitic syndrome. He was advised that he could off Coumadin when he runs out of his present supply. D-dimer will be checked about 3-4 weeks after he is off Coumadin. He was advised to call back in 2 report when he is off Coumadin so that he can be restarted on Plavix 75 mg daily. Hypercholesterolemia. Lab will be checked in December. Ordered: Comprehensive Metabolic Panel Creatine Kinase Lipid Panel TSH 3rd Generation Hypothyroidism TSH level will be checked in December. Orders: bisoprolol-hydrochlorothiazide, 1 tabs, Oral, BID, # 180 tabs, 1 Refill(s) Durable Medical Equipment Rx, DME Item BD Ultra Fine Pen [place] Short 90 Day Supply BID, See Instructions, # 180 Each, 3 Refill(s), Pharmacy: [facility], BD Ultra Fine Pen [place]; Short; 90 Day Supply; BID, Supply, DX - 250.00 Durable Medical Equipment Rx, DME Item Test Blood Sugars fasting and after evening meal daily 250.00 Contour strips. [employer], See Instructions, # 3 boxes, 3 Refill(s), Pharmacy: [facility], Test Blood Sugars fasting and after evening meal daily 250.00 Contour... Durable Medical Equipment Rx, DME Item novolog mix 70-30 flexpen 250.00 inject 48 U in AM and 40 U in PM- insulin BID Patient needs 90d supply, See Instructions, # 6 boxes, 0 Refill(s), Pharmacy: [facility], novolog mix 70-30 flexpen 250.00 inject 48 U in A... levothyroxine, 25 mcg 1 tabs, Oral, Daily, # 90 tabs, 1 Refill(s), Pharmacy: [facility], 1 tabs Oral Daily lisinopril, 20 mg 1 tabs, Oral, BID, # 180 tabs, 1 Refill(s), Pharmacy: [facility] simvastatin, 10 mg 1 tabs, Oral, Bedtime (once a day), # 90 tabs, 1 Refill(s) , Pharmacy: [facility], 1 tabs Oral Bedtime (once a day)
--- NOTE | 2016-09-04 11:35 | NUR ---
CT PT TO CT [facility], ACCOMPANIED BY THIS RN.
[2016-09-04] MEDS ORDERED: NORMAL SALINE 1,000 ML IV ONE (11:39)
--- NOTE | 2016-09-04 11:41 | NUR ---
STATUS PT MUCH MORE AWAKE, ALERT. SPEECH CLEAR. PT ABLE TO ANSWER QUESTIONS APPROPRIATELY. ASKS "WHAT HAPPENED?" EVENTS AND PLAN OF CARE EXPLAINED TO PT.
--- NOTE | 2016-09-04 11:41 | NUR ---
CT PT RETURNED.
[2016-09-04 11:45] LABS: HCT - HEMATOCRIT 43.3 % (41-53); HGB - HEMOGLOBIN 14.6 GM/DL (13.5-17.5); MEAN CORPUSCULAR HGB 32.1 UUG (26-34); MEAN CORPUSCULAR HGB CONC(MCHC 33.7 GM/DL (31-37); MEAN CORPUSCULAR VOLUME 95.2 UM3 (80-100); MEAN PLATELET VOLUME 9.2 UM3 (9.4-12.4); RED BLOOD COUNT 4.55 M/MM3 (4.50-5.90); WBC - WHITE BLOOD COUNT 15.2 T/MM3 (4.5-11.0)
[2016-09-04 11:48] LABS: INR 1.11 (0.76-1.04); PROTHROMBIN TIME 12.1 SEC (9.31-12.49); PTT 30.2 SEC (24-36)
--- OUTSIDE RECORDS SUMMARY | 2016-09-04 11:51 | XMS REPORT | Continuity of Care Document ---
Author Author [facility] Organization [facility] Address Unknown Phone Unavailable Allergies Active Description [...] Status Pt. Type Provider Facility Loc./Unit Complaint [id number] 06/30/2012 14:30:00 2012 23:59:59 CLS Outpatient Garfield Turner MD [facility] [place] [facility]
[2016-09-04 11:52] LABS: ALBUMIN 4.8 G/DL (3.5-5.0); ALBUMIN/GLOBULIN RATIO 1.4 RATIO (1.1-2.2); ALKALINE PHOSPHATASE 58 U/L (38-126); ALT (SGPT) 37 U/L (21-72); ANION GAP 15 MEQ/L (5-15); AST (SGOT) 23 U/L (17-59); BUN/CREATININE RATIO 25 RATIO (6-26); CALCIUM 9.9 MG/DL (8.4-10.2); CHLORIDE 101 MEQ/L (98-107); CO2 - CARBON DIOXIDE 27 MEQ/L (22-30); CREATININE 1.4 MG/DL (0.8-1.5); GLOMERULAR FILTRATION RATE 48; GLUCOSE 55 MG/DL (75-110); SODIUM 143 MEQ/L (134-144); TOTAL PROTEIN 8.2 G/DL (6.3-8.2)
[2016-09-04 11:53] LABS: EOSINOPHILS # (MANUAL) 0.5 T/MM3 (0-0.5); LYMPHOCYTES # (MANUAL) 4.1 T/MM3 (1-4.8); METAMYELOCYTES # 0.2 T/MM3; MONOCYTES # (MANUAL) 0.6 T/MM3 (0-0.8); NEUTROPHILS #(MANUAL)-ABSOLUTE 9.9 T/MM3 (1.8-7.7); TOTAL CELLS COUNTED 100 %
--- NOTE | 2016-09-04 11:53 | DI ---
Indication: ITS.REASON: mental status change PROCEDURE: CT HEAD W/O CONTRAST: Encounter: Initial Comparison: May 15, 2013 Technique: Axial CT images through the head were performed without contrast. Iterative Reconstruction dose reducing technique was utilized. FINDINGS: Moderate generalized atrophy. The ventricles are stable. There are numerous areas of low attenuation in the white matter which most likely represent changes from chronic microvascular ischemia. The brainstem, cerebellum, and cerebral hemispheres otherwise have a normal morphology and CT attenuation. There is no evidence of midline displacement. No hemorrhage, signs of acute territorial stroke, mass effect, mass lesions, or edema is evident. The visualized portions of the skull base, midface, and calvarium demonstrate no abnormality. The paranasal sinuses are well aerated and free of significant disease. The tympanic and mastoid cavities appear normal. IMPRESSION: No acute intracranial hemorrhage or extended infarct signs. Results were discussed with Dr. Reilly at 1145 on September 04, 2016, four minutes after the conclusion of the exam. .
[2016-09-04] MEDS ORDERED: LISI-621 PO (12:18)
[2016-09-04] MEDS ORDERED: SIMV10TA6 PO (12:18)
[2016-09-04] MEDS ORDERED: BISO1TAB7 PO (12:18)
[2016-09-04] MEDS ORDERED: LEVO25TA9 PO (12:18)
[2016-09-04] MEDS ORDERED: DEXTROSE 50% SYRINGE 50ml (Eq. 1 AMP) IV ONE (12:30)
[2016-09-04 12:33] LABS: BLOOD, URINE NEGATIVE (NEGATIVE); COLOR,URINE YELLOW (YELLOW); LEUKOCYTE ESTERASE ,URINE NEGATIVE (NEGATIVE); NITRITE,URINE NEGATIVE (NEGATIVE)
--- NOTE | 2016-09-04 12:38 | NUR ---
NIH SS PT AND DAUGHTER GIVEN RATIONAL FOR COMPLETION OF NIHSS. PT VERBALIZED UNDERSTANDING.
--- NOTE | 2016-09-04 12:45 | NUR ---
VOID PT VOIDED 275ML URINE.
--- NOTE | 2016-09-04 13:04 | NUR ---
DR DR SANDERS AT BEDSIDE.
--- NOTE | 2016-09-04 13:06 | NUR ---
PO PT GIVEN APPLESAUCE TO EAT.
--- NOTE | 2016-09-04 13:10 | ERPDOC ---
Departure Disposition Decision Date: September 04, 2016 Disposition Decision Time: 13:19 Disposition: 01 DISCHARGED HOME, SELF-CARE Impression Impression Impression: Primary Impression: Altered Mental Status Additional Impression: Severe diabetic hypoglycemia Severity: Severe Condition: Improved Seen By: Physician only Patient Instructions: Hypoglycemia in a Person with Diabetes (ED) Problems/Meds/Labs Reviewed?: Yes Medications reviewed and manag: Yes Additional Instructions: Recommend you hold insulin dose for tonight, restart in the morning. Consider decreasing back to 30 units of either Lantus or 30 units of 7030 mix twice daily. Please discuss this with your primary care provider. Watch blood sugars very closely today, recommend checking every 2 hours. He will need supplemental snacks due to the reaction to insulin. Please return to emergency department if any more mental status changes occur Follow up care ordered?: Yes Mental Status: Alert, Oriented Scripts Dextrose (Glutose 45) 112.5 Gm Gel..gram. 1 TUBE PO DAILY Y for HYPOGLYCEMIA, #5 TUBE Prov: HUNG SANDERS MD 09/04/16 HPI - CVA/Neuro General Chief Complaint: Neuro Symptoms/Deficits Stated Complaint: STROKE Time Seen by Provider: 11:38 HPI - CVA/NEURO Initial Comments 86-year-old male presents with mental status changes. Patient was at an interview with a snf, finished interview and became withdrawn and quiet and would not answer questions on the way out. He then had a short syncopal episode. Patient was placed in the car and brought to the ED. On the way he was given a cookie and 2 sugar cubes but did not improve his mentation. 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 He has also had multiple TIAs. None of his previous episodes have presented like this, most of them have had either strictly weakness or weakness and mentation changes. He's not been sick lately, no fevers or chills, no new medications. Allergies: Coded Allergies: No Known Allergies (Verified , 09/04/16) Past History Past Medical History Metabolic: diabetes Surgical History Denies Surgeries Vaccines Hx Influenza Vaccination: Yes (01/2013) Hx Pneumococcal Vaccination: No Social History Smoking Status: Never smoker Substance Use Type: does not use Alcohol Intake: none Record Review Pertinent history updated: Yes Review of Systems Unable to Obtain ROS Due to: clinical condition Physical Exam General General Nourishment: well nourished, well developed, appears stated age Distress Description Patient initially unable to answer questions, looking around the room. Vitals and Pain First Documented Vital Signs Date Time Temp Pulse Resp B/P Pulse Ox O2 Delivery O2 Flow Rate FiO2 09/04/16 11:27 97.8 60 20 162/71 94 Room Air Weight: Kilograms: 100.400 Height (feet): 6 Height (inches): 0 Triage Pain Scale: Normal Exams: Head: Normocephalic w/o trauma Chest/Resp: Clear all rogers, with good airflow, and symmetry bilaterally CV: Regular rate and rhythm, without murmur or gallop, Pulses 2+ all extremities, capillary refill, <2 seconds all ext., no pedal edema noted Abdomen: Bowel sounds positive, soft, non-tender, non-distended, no hepatosplenomegaly, masses or bruits noted Neurologic (brief) Comments Patient is almost catatonic. Attempting to do neuro exam, he was unable to follow directions properly. He would begin to do something, and stop however then when given directions to do something different he would leave 1 and in the position for the initial test and try to do the test with the second Hand. He wound up leaving his mouth open, left hand open wide and right hand gripped in a fist and holding it that way for several minutes while we were trying to finish the exam. When asked if he knew his name he just smiled Differential Diagnoses Considering: Thrombotic CVA, Hemorrhagic CVA, Delirium, Dementia, DKA, Drug Overdose, Hypertensive Emergency, Hysteria, Medication Effect, Meningitis, Psychogenic, TIA Progress Results/Orders Orders Procedure Category Date Status Time Oxygen Administration EDM 09/04/16 Transmitted 11:39 Iv Lock (Ed Only) EDM 09/04/16 Transmitted 11:39 Bgm (Ed) EDM 09/04/16 Transmitted 11:39 Nothing By Mouth (Ed EDM 09/04/16 Transmitted Only) 11:39 Cbc W/Auto LAB 09/04/16 Complete Diff-Reflex Manual 11:39 Cmp - Comprehensive LAB 09/04/16 Complete Metabolic 11:39 Troponin I W LAB 09/04/16 Complete Hemolysis Index 11:39 INR LAB 09/04/16 Complete 11:39 PTT LAB 09/04/16 Complete 11:39 EKG EKG 09/04/16 Taken 11:39 Ct Head W/O Contrast CT 09/04/16 Resulted 11:39 Nih Stroke Scale RAVIN 09/04/16 In Process 11:39 Normal Saline (Normal PHA 09/04/16 Complete Saline Iv) 11:39 Elevate Hob RAVIN 09/04/16 In Process 11:39 Measure Vital Signs RAVIN 09/04/16 In Process 11:39 Dextrose 50% Pfs PHA 09/04/16 Complete (D50w) 12:30 Ua, Dip Wreflex LAB 09/04/16 Complete Microsc & Extractions Technologist 12:23 Lab Results Laboratory Tests Test 09/04/16 11:29 09/04/16 11:33 09/04/16 11:54 09/04/16 12:26 Glucometer 54mg/dL 137mg/dL White Blood Count 15.2T/MM3 Red Blood Count 4.55M/MM3 Hemoglobin 14.6GM/DL Hematocrit 43.3% Mean Corpuscular Volume 95.2UM3 Mean Corpuscular Hemoglobin 32.1UUG Mean Corpuscular Hemoglobin Concent 33.7GM/DL RDW Standard Deviation 43.9FL Platelet Count 283T/MM3 Mean Platelet Volume 9.2UM3 Immature Granulocyte % (Auto) % Neutrophils (%) (Auto) % Lymphocytes (%) (Auto) % Monocytes (%) (Auto) % Eosinophils (%) (Auto) % Basophils (%) (Auto) % Absolute Immature Granulocyte (auto T/MM3 Absolute Neutrophils (auto) T/MM3 Absolute Lymphocytes (auto) T/MM3 Absolute Monocytes (auto) T/MM3 Absolute Eosinophils (auto) T/MM3 Absolute Basophils (auto) T/MM3 Neutrophils % (Manual) 65.0% Lymphocytes % (Manual) 27.0% Monocytes % (Manual) 4.0% Eosinophils % (Manual) 3.0% Metamyelocytes % 1.0% Absolute Neutrophils (Manual) 9.9T/MM3 Lymphocytes # (Manual) 4.1T/MM3 Monocytes # (Manual) 0.6T/MM3 Eosinophils # (Manual) 0.5T/MM3 Metamyelocytes # 0.2T/MM3 Red Cell Morphology Comment Normal Prothromb Time International Ratio 1.11 Activated Partial Thromboplast Time 30.2SEC Turbidity < 20 Sodium Level 143MEQ/L Potassium Level 4.0MEQ/L Chloride Level 101MEQ/L Carbon Dioxide Level 27MEQ/L Anion Gap 15MEQ/L Blood Urea Nitrogen 35.0MG/DL Creatinine 1.4MG/DL Glomerular Filtration Rate Calc 48 BUN/Creatinine Ratio 25RATIO Glucose Level 55MG/DL Calculated Osmolality 281MOSM/KG Calcium Level 9.9MG/DL Total Bilirubin 1.00MG/DL Icterus Index < 2 Aspartate Amino Transf (AST/SGOT) 23U/L Alanine Aminotransferase (ALT/SGPT) 37U/L Alkaline Phosphatase 58U/L Troponin I 0.021ng/ml Total Protein 8.2G/DL Albumin 4.8G/DL Globulin 3.4G/DL Albumin/Globulin Ratio 1.4RATIO Chemistry Specimen Hemolysis < 15 Urine Collection Type Cleancatch-midstream Urine Color Yellow Urine Turbidity Clear Urine pH 5.5 Urine Specific [place] 1.015 Urine Protein Trace Urine Glucose (UA) Trace Urine Ketones Negative Urine Blood Negative Urine Nitrite Negative Urine Bilirubin Negative Urine Urobilinogen 1.0EU/DL Urine Leukocyte Esterase Negative Urinalysis Comment Microscopic not ind. Medications Current ED Medications Sodium Chloride (Normal Saline IV) 1,000 ml @ 1,000 mls/hr Q1H ONCE IV Last administered on 09/04/16t 12:06; Start 09/04/16 at 11:39; Stop 09/04/16 at 12:38; Status DC Dextrose (D50w) 50 ml O ONCE IV ; Start 09/04/16 at 12:30; Stop 09/04/16 at 12:31 ; Status DC Progress Progress Stroke protocol was activated immediately. However I did hold him back from CT four-minute while IV was placed and an amp of D50 was pushed. This is because of very short initial neuro exam showed an inability to follow directions rather than focal weakness. Patient was almost immediately able to follow directions better after the amp of D50 was pushed. He was taken to CT and was back within 5 minutes. Once he returned, he was speaking much more clearly, following directions and showing personality. I spoke with family, attends out he did recently change insulin from Lantus back to 7030 that he used previously. He also bumped his dose from 30 twice a day of Lantus to 48 and 60 a.m. p.m. respectively with the 7030 mix. After the amp of D50 was given a since blood sugar went from 54 up to approximately 150. Within 30 minutes, it was dropping and has worked on down to 84 at this time. He is being given applesauce and juice prior to discharge. Discussed with the family that he had normal CT scan, normal labs except for slightly elevated white count. They stated that he is chronically having a slightly elevated white count. I do think this issue is from the increase in insulin and his hypoglycemia. They'll need to watch his sugars very closely for the next day or 2. Recommend that they hold his insulin tonight and start him back on the lower dose either of Lantus or take a dose of 30 units twice daily as a 7030 mix of they preferred. He is welcome to return to the ED at any time. Spent greater than 40 minutes in critical care time with this patient and planning and evaluation. HUNG SANDERS MD September 04, 2016 13:10
--- NOTE | 2016-09-04 13:22 | NUR ---
STATUS PT ASSISTED WITH GETTING DRESSED. PT FINISHED ENTIRE APPLESAUCE CARTON. PT REMAINS ALERT, ORIENTED. SPEECH CLEAR. PT ASSISTED TO WC, WEAK, UNSTEADY GAIT. PT INSTRUCTED TO GET FEET UNDERNEATH HIM IN A SQUARE MANOR. OBSERVED THAT ONCE PT'S LEGS SQUARELY UNDER HIM, GAIT BECAME MORE STEADY.
[2016-09-04] MEDS ORDERED: [UNRECOGNIZED DRUG - CODE] PO (13:25)
[2016-09-04 13:31] VITALS: BP 166/72; PULSE 57; RESP 20; O2SAT 98
--- NOTE | 2016-09-04 13:31 | NUR ---
DISMISS PT ASSISTED TO PRIVATE CAR, DRIVEN BY DAUGHTER, BY THIS RN. PT'S GAIT STEADY WITH TRANSFER INTO VEHICLE.
== END 2016-09-04 13:31 | disposition home or self-care (01) ==
LOC: ED 11:25
DX: R41.82 Altered mental status, unspecified (principal); E11.649 Type 2 diabetes mellitus with hypoglycemia without coma; Z79.4 Long term (current) use of insulin; Z86.73 Personal history of transient ischemic attack (TIA), and cerebral infarction without residual deficits
CPT/HCPCS: 70450; 80053; 81003; 82948; 84484; 85025; 85610; 85730; 93005; 96361; 96374; 99284; J7030

== ENCOUNTER → 2016-09-15 | Outpatient (CLI) | payer MEDICARE, OTHER ==
[~2016-09-15] MED LIST changes: +BISO1TAB7 PO; -BISOPROLOL; -CYAN500T37 PO; -FISH1CAP PO; +LEVO25TA9 PO; +LISI-621 PO; -LISINOPRIL; +SIMV10TA6 PO; -SIMVASTATIN; +[UNRECOGNIZED DRUG - CODE] PO
[2016-09-15 06:59] LABS: BASOPHILS % (AUTO) 0.2 % (0-2); EOSINOPHILS # (AUTO) 0.2 T/MM3 (0-0.5); EOSINOPHILS % (AUTO) 2.4 % (0-4); HCT - HEMATOCRIT 40.6 % (41-53); HGB - HEMOGLOBIN 13.7 GM/DL (13.5-17.5); IMMATURE GRANULOCYTE # (AUTO) 0.01 T/MM3 (0.00-0.03); IMMATURE GRANULOCYTE % (AUTO) 0.1 % (0.0-0.5); LYMPHOCYTES # (AUTO) 3.8 T/MM3 (1-4.8); LYMPHOCYTES % (AUTO) 38.2 % (23-45); MEAN CORPUSCULAR HGB 32.5 UUG (26-34); MEAN CORPUSCULAR HGB CONC(MCHC 33.7 GM/DL (31-37); MEAN CORPUSCULAR VOLUME 96.2 UM3 (80-100); MEAN PLATELET VOLUME 9.4 UM3 (9.4-12.4); MONOCYTES # (AUTO) 1.2 T/MM3 (0-0.8); MONOCYTES % (AUTO) 12.2 % (0-9.0); NEUTROPHILS #(AUTO)-ABSOLUTE 4.7 T/MM3 (1.8-7.7); NEUTROPHILS % (AUTO) 46.9 % (33-66); RED BLOOD COUNT 4.22 M/MM3 (4.50-5.90)
[2016-09-15 07:13] LABS: ALBUMIN 4.3 G/DL (3.5-5.0); ALBUMIN/GLOBULIN RATIO 1.3 RATIO (1.1-2.2); ALKALINE PHOSPHATASE 57 U/L (38-126); ALT (SGPT) 37 U/L (21-72); ANION GAP 14 MEQ/L (5-15); AST (SGOT) 20 U/L (17-59); BUN/CREATININE RATIO 22 RATIO (6-26); CALCIUM 9.4 MG/DL (8.4-10.2); CHLORIDE 103 MEQ/L (98-107); CO2 - CARBON DIOXIDE 28 MEQ/L (22-30); CREATININE 1.4 MG/DL (0.8-1.5); GLOMERULAR FILTRATION RATE 48; GLUCOSE 163 MG/DL (75-110); POTASSIUM 4.1 MEQ/L (3.6-5); SODIUM 145 MEQ/L (134-144); TOTAL PROTEIN 7.5 G/DL (6.3-8.2)
[2016-09-15 07:16] LABS: PROBNP 290 PG/ML (0-175)
[2016-09-15 07:37] LABS: THYROID STIM HORMONE-TSH 3.92 MIU/L (0.47-4.68)
[2016-09-15 07:44] LABS: HEMOGLOBIN A1C 6.5 % (6.1-7.9)
[2016-09-17 03:18] LABS: LDL CHOLESTEROL,CALCULATED 77.6 (66-159); RISK FACTOR 5.2 RATIO (0-5.0); VLDL CHOLESTEROL 45.4 MG/DL (0-28)
== END ==
LOC: LABNH.PM 00:47
PROVIDERS: ATTEND Family Medicine
DX: E11.9 Type 2 diabetes mellitus without complications (principal); E03.9 Hypothyroidism, unspecified; E78.00 Pure hypercholesterolemia, unspecified; I10 Essential (primary) hypertension
CPT/HCPCS: 36415; 80048; 80061; 80076; 83036; 83880; 84443; 85025; P9604

== ENCOUNTER → 2016-09-22 | Outpatient (CLI) | payer MEDICARE, OTHER | LOC: LABNH.PM 01:41 | PROVIDERS: ATTEND Family Medicine | DX: E56.9 Vitamin deficiency, unspecified (principal) | CPT/HCPCS: 36415; 82607 ==

== ENCOUNTER 2016-11-16 12:16 | Observation (INO) ==
--- NOTE | 2016-11-16 12:28 | Emergency Department Report ---
Dizziness HPI - General Chief Complaint: Dizziness Stated Complaint: hypotensive Time Seen by Provider: 11/16/16 12:28 Source: patient Mode of arrival: wheelchair Limitations: no limitations - History of Present Illness HPI Narrative: Patient presents by POV from [facility] with complaints of dizziness and orthostatic hypotension. Patient reports has had dizziness on and off for about a month. Patient did have a TIA in August which affected his right side temporarily. Patient denies having any residual neurological effects from that TIA. He has been in [facility] since dismissal and recently transferred to assisted living. Paulino is unable to differentiate to me if he is having dizziness, feeling like he is going to faint or having vertigo. It does sound by his description that the sensation is made worse with movement. Patient also states that he has been having to "urinate a lot" also complains of a mild vibration sensation to his left inner ear. Patient's daughter reports that on 2 occasions in the past 2 weeks, patient had complained of sudden onset of dizziness with shortness of air. During that time he states he never has had any chest pain. Patient today complained of dizziness and orthostatic vital signs were checked by [facility] staff. Patient did appear to have orthostatic changes with blood pressure changes from 123/48, 109/55, 93/33 prior to transfer to the emergency department. Patient states that there has been an increase in his diuretic dosage. Those exact details are unavailable at this time however patient does take bisoprolol /HCTZ and lasix 40 mg po daily. At time of my exam, patient is lying in bed and states that he is without dizziness. Patient denies any chest pain or shortness of air. He is alert and oriented. No focal neurological deficits noted. Patient is an insulin-dependent diabetic. Blood sugar upon arrival is 204. - Related Data Home Medications Medication Instructions Recorded Confirmed Insulin NPH/Aspart 70/30 [NovoLOG 25 unit SQ BID #0 09/10/11 11/16/16 MIX 70-30] Bisoprolol Fumarate/Hctz 1 tab PO DAILY #30 tab 09/04/16 11/16/16 [Bisoprolol-Hctz 10-6.25 mg Tab] Levothyroxine Sodium 25 mcg PO ACB #0 tab 09/04/16 11/16/16 Simvastatin 10 mg PO DAILY #0 tab 09/04/16 11/16/16 Aspirin [Aspirin] 81 mg PO DAILY 11/16/16 11/16/16 Cyanocobalamin (Vitamin B-12) 1,000 mcg PO DAILY 11/16/16 11/16/16 [Vitamin B-12] Furosemide [Lasix] 40 mg PO DAILY 11/16/16 11/16/16 Lisinopril [Prinivil] 40 mg PO DAILY 11/16/16 11/16/16 Loperamide [Imodium] 2 mg PO TID PRN 11/16/16 11/16/16 Loratadine [Claritin] 10 mg PO DAILY PRN 11/16/16 11/16/16 Multivitamin [Multivitamins] 1 cap PO BID 11/16/16 11/16/16 Potassium Chloride [Klor-Con 10] 10 meq PO DAILY 11/16/16 11/16/16 Allergies Allergy/AdvReac Type Severity Reaction Status Date / Time No Known Allergies Allergy Verified 11/16/16 12:46 [facility] Patient Stated Medical History Cerebrovascular Accident Yes: multiple TIA'a "unspecified cerebral infarction" Hypertension Yes Other Cardiology Yes: hyperlipidemia Diabetes Mellitus Type 2 Yes Other Yes: chronic kidney disease Other Musculoskeletal Yes: neuropathy Physical Exam - Limitations Limitations: no limitations - General General appearance: alert, in no apparent distress - Normal Exams: Head:: Normocephalic without trauma Eyes:: Pupils are PERRLA w/ EOMI, No scleral icterus, irritation, or foreign bodies noted ENMT:: No facial trauma, nasal exudates, pharyngeal erythema, or exudates are noted Neck:: Full range of motion, without adenopathy, JVD, bruits or thyromegaly Chest/Respirations:: Clear all rogers, with good airflow, and symmetry bilaterally Cardiovascular:: Regular rate and rhythm, without murmur or gallop, Pulses 2+ all extremities Abdomen:: Bowel sounds positive, soft, non-tender, non-distended, no hepatosplenomegaly, masses or bruits noted Integumentary:: No rashes, hives, or bruising noted Neurological:: Patient is alert, and oriented, cranial nerves, motor/sensory/ cerebellar, exams w/o gross deficits, to observation Psychiatric:: Patient exhibits, appropriate attention, emotion and affect - ENT ENT exam: Present: mucous membranes dry. Absent: TM's normal bilaterally (left TM with cerumen impaction) - Extremities Exam Extremities exam: Present: pedal edema (bilateral lower extremity pedal edema which patient states has had significant improvement since diuretic therapy) Course - Reevaluation(s) Reevaluation #1: Creatinine is 2.3 with BUN of 74. Patient does have a history of chronic renal insufficiency however last creatinine in August was 1.4 with BUN of 31. Time: 13:44 Reevaluation #2: patient remains alert and oriented. Has had fluid bolus of 1 liter. Discussed with patient the likelihood that he will require admission at least for observation and patient is in agreement with this. - Consultations Consultation #1: Discussed patient's case with hospitalist who accepts admission with diagnosis of acute on chronic renal injury, dehydration and orthostatic hypotension. Time: 14:32 Vital Signs Temperature 98.4 F 11/16/16 12:18 Pulse Rate 64 11/16/16 12:18 Respiratory Rate 16 11/16/16 12:18 Blood Pressure 145/65 H 11/16/16 12:18 Pulse Oximetry 98 11/16/16 12:18 Temperature 98.4 F 11/16/16 12:18 Pulse Rate 60 11/16/16 14:07 Respiratory Rate 16 11/16/16 13:46 Blood Pressure 130/60 11/16/16 14:07 Pulse Oximetry 98 11/16/16 14:07 Dizziness - MDM Narrative Medical decision making narrative: Patient's EKG is without changes from prior EKGs. Patient's troponin is negative. Patient's lab work does indicate acute on chronic renal injury injury with elevations of creatinine from 1.4 in August to 2.3 today and BUN of 75 today from 31 in August. Patient reports increase in diuretic dosages. Patients head CT shows chronic changes with possible concern for NPH ; patient has had no prior documentation of this in his history that I can see. Patient does describe dizziness/vertigo with increased frequency of urination but denies incontinence. - Differential Diagnosis Likely: benign paroxysmal positional vertigo, orthostatic hypotension, cerebrovascular accident, transient cerebral ischemia - Lab Data Result diagrams: 11/16/16 12:52 11/16/16 12:52 Lab Results 11/16/16 11/16/16 11/16/16 Range/Units 12:33 12:52 12:52 WBC 11.6 H (4.5-11.0) T/MM3 RBC 3.84 L (4.50-5.90) M/MM3 Hgb 12.4 L (13.5-17.5) GM/DL Hct 36.8 L (41-53) % MCV 95.8 (80-100) UM3 MCH 32.3 (26-34) UUG MCHC 33.7 (31-37) GM/DL RDW Std Deviation 43.4 (36.9-50.2) FL Plt Count 220 (130-400) T/MM3 MPV 9.6 (9.4-12.4) UM3 Immature Gran % (Auto) 0.5 (0.0-0.5) % Neut % (Auto) 61.4 (33-66) % Lymph % (Auto) 26.7 (23-45) % [place] % (Auto) 9.5 H (0-9.0) % Eos % (Auto) 1.6 (0-4) % Baso % (Auto) 0.3 (0-2) % Neut # 7.1 (1.8-7.7) T/MM3 Lymph # 3.1 (1-4.8) T/MM3 [place] # 1.1 H (0-0.8) T/MM3 Eos # 0.2 (0-0.5) T/MM3 Baso # 0.0 (0-0.2) T/MM3 Abs Immat Gran (auto) 0.06 H (0.00-0.03) T/MM3 Turbidity < 20 (0-20) Sodium 138 (134-144) MEQ/L Potassium 4.9 (3.6-5) MEQ/L Chloride 100 (98-107) MEQ/L Carbon Dioxide 23 (22-30) MEQ/L Anion Gap 15 (5-15) MEQ/L BUN 75.0 H* (9-20) MG/DL Creatinine 2.3 H (0.8-1.5) MG/DL GFR Calculation 27 BUN/Creatinine Ratio 33 H (6-26) RATIO Glucose 221 H (75-110) MG/DL Glucometer 204 (65-110) mg/dL Calculated Osmolality 295 H (261-280) MOSM/KG Calcium 10.0 (8.4-10.2) MG/DL Total Bilirubin 0.50 (0.20-1.30) MG/DL Icterus Index < 2 (0-7) AST 19 (17-59) U/L ALT 23 (21-72) U/L Alkaline Phosphatase 46 (38-126) U/L Troponin I < 0.012 (0-0.12) ng/ml B-Natriuretic Peptide (0-175) pg/mL Total Protein 7.5 (6.3-8.2) G/DL Albumin 4.4 (3.5-5.0) G/DL Globulin 3.1 (2.4-3.6) G/DL Albumin/Globulin Ratio 1.4 (1.1-2.2) RATIO Specimen Hemolysis < 15 (0-25) Ur Collection Type Urine Color (YELLOW) Urine Clarity Urine pH (5.0-8.0) Ur Specific [place] (1.015-1.025) Urine Protein (NEGATIVE) Urine Glucose (UA) (NEGATIVE) Urine Ketones (NEGATIVE) Urine Occult Blood (NEGATIVE) Urine Nitrate (NEGATIVE) Urine Bilirubin (NEGATIVE) Urine Urobilinogen (NORMAL) EU/DL Ur Leukocyte Esterase (NEGATIVE) Urinalysis Comment 11/16/16 11/16/16 Range/Units 13:35 13:44 WBC (4.5-11.0) T/MM3 RBC (4.50-5.90) M/MM3 Hgb (13.5-17.5) GM/DL Hct (41-53) % MCV (80-100) UM3 MCH (26-34) UUG MCHC (31-37) GM/DL RDW Std Deviation (36.9-50.2) FL Plt Count (130-400) T/MM3 MPV (9.4-12.4) UM3 Immature Gran % (Auto) (0.0-0.5) % Neut % (Auto) (33-66) % Lymph % (Auto) (23-45) % [place] % (Auto) (0-9.0) % Eos % (Auto) (0-4) % Baso % (Auto) (0-2) % Neut # (1.8-7.7) T/MM3 Lymph # (1-4.8) T/MM3 [place] # (0-0.8) T/MM3 Eos # (0-0.5) T/MM3 Baso # (0-0.2) T/MM3 Abs Immat Gran (auto) (0.00-0.03) T/MM3 Turbidity (0-20) Sodium (134-144) MEQ/L Potassium (3.6-5) MEQ/L Chloride (98-107) MEQ/L Carbon Dioxide (22-30) MEQ/L Anion Gap (5-15) MEQ/L BUN (9-20) MG/DL Creatinine (0.8-1.5) MG/DL GFR Calculation BUN/Creatinine Ratio (6-26) RATIO Glucose (75-110) MG/DL Glucometer (65-110) mg/dL Calculated Osmolality (261-280) MOSM/KG Calcium (8.4-10.2) MG/DL Total Bilirubin (0.20-1.30) MG/DL Icterus Index (0-7) AST (17-59) U/L ALT (21-72) U/L Alkaline Phosphatase (38-126) U/L Troponin I (0-0.12) ng/ml B-Natriuretic Peptide 293 H (0-175) pg/mL Total Protein (6.3-8.2) G/DL Albumin (3.5-5.0) G/DL Globulin (2.4-3.6) G/DL Albumin/Globulin Ratio (1.1-2.2) RATIO Specimen Hemolysis (0-25) Ur Collection Type Urine, clean catch Urine Color Yellow (YELLOW) Urine Clarity Clear Urine pH 5.0 (5.0-8.0) Ur Specific [place] 1.010 L (1.015-1.025) Urine Protein Negative (NEGATIVE) Urine Glucose (UA) Trace A (NEGATIVE) Urine Ketones Negative (NEGATIVE) Urine Occult Blood Negative (NEGATIVE) Urine Nitrate Negative (NEGATIVE) Urine Bilirubin Negative (NEGATIVE) Urine Urobilinogen 0.2 (NORMAL) EU/DL Ur Leukocyte Esterase Negative (NEGATIVE) Urinalysis Comment Microscopic not ind. 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 Disposition Clinical Impression: [id number] kidney injury, Orthostatic hypotension Disposition: OBS [facility] [place] Condition: Stable Prescriptions: No Action Bisoprolol Fumarate/Hctz [Bisoprolol-Hctz 10-6.25 mg Tab] 1 tab PO DAILY #30 tab Simvastatin 10 mg PO DAILY #0 tab Furosemide [Lasix] 40 mg PO DAILY Cyanocobalamin (Vitamin B-12) [Vitamin B-12] 1,000 mcg PO DAILY Loperamide [Imodium] 2 mg PO TID PRN PRN Reason: Diarrhea Loratadine [Claritin] 10 mg PO DAILY PRN PRN Reason: Prn Orders Multivitamin [Multivitamins] 1 cap PO BID Potassium Chloride [Klor-Con 10] 10 meq PO DAILY Insulin NPH/Aspart 70/30 [NovoLOG MIX 70-30] 25 unit SQ BID #0 Levothyroxine Sodium 25 mcg PO ACB #0 tab Lisinopril [Prinivil] 40 mg PO DAILY Aspirin [Aspirin] 81 mg PO DAILY Referrals: Nathalie Pickens MD [Family Provider] - - Seen By: rafael
[2016-11-16] MEDS ORDERED: NS 1,000 ML IV ONE (12:31)
[2016-11-16] MEDS ORDERED: SALINE FLUSH 10ml SYRINGE IVF PRN (13:06)
--- NOTE | 2016-11-16 13:25 | CT Scan Report ---
EXAM: CT head/brain wo con COMPARISON: 09/04/2016. 05/15/2013. HISTORY: dizziness and on for one month. [place] [facility] [place]NI[place]: Without IV contrast, axial images were obtained through the brain and reviewed in brain, soft tissue, bone, and subdural windows. The current CT scan was performed using radiation dose-reduction techniques. FINDINGS: The CSF spaces are prominent likely related to atrophy in keeping with age; although, normal pressure hydrocephalus is also a consideration in the correct clinical setting. Correlate clinically.. There is extensive periventricular deep white matter hypodensities noted likely related to small vessel ischemic disease. There may be an area of hypodensity at the right posterior parietal subdural deep white matter extending to the cortex which may represent encephalomalacia change of from prior ischemic event and is similar to the prior exam. The suprasellar cistern and quadrigeminal plate cisterns are intact. The valdes-white junctions are distinct. No sulcal effacement is identified. The basal ganglia, posterior fossa and brainstem region appear unremarkable. There is no evidence for midline shift or mass effect. The midline structures appear unremarkable. No osseous abnormalities are identified. The paranasal sinuses and mastoid air cells are clear. IMPRESSION: 1. Atrophy in keeping with age. Although, the degree of ventriculomegaly also raises the question of normal pressure hydrocephalus. Clinical correlation is suggested. 2. Extensive periventricular deep white matter hypodensities are again noted likely related to chronic small vessel ischemic disease. 3. There is again noted encephalomalacic change at the right posterior parietal occipital lobe likely related to prior ischemic event. .
--- NOTE | 2016-11-16 14:29 | XRay Report ---
EXAM: XR chest 1V COMPARISON: None available. HISTORY: weakness . Low blood pressure. FINDINGS:There is eventration of the right hemidiaphragm. EKG leads and wires project over the chest. The heart is upper limits of normal to mildly enlarged. The pulmonary vascularity appears unremarkable. The lungs are clear. There is no evidence for pleural effusion. There is no evidence for a pneumothorax. The right humeral head is high riding, which can be seen with chronic rotator cuff tear. Glenohumeral joint degenerative changes are also noted. IMPRESSION: 1. Cardiomegaly 2. No acute process identified. LOCATION OF DICTATION: [facility] [place] .
--- NOTE | 2016-11-16 15:28 | History & Physical Report ---
<Delores Pandya V - Last Filed: 11/16/16 15:24> History of Present Illness Date: 11/16/16 Chief complaint: Dizziness HPI: Harpreet is a pleasant 86-year-old male who is brought to the emergency room from [facility] where he is resides for evaluation of dizziness. He reports that he has had intermittent episodes of dizziness for approximately 1 month. He reports in the last 2 weeks he has had 2 episodes of significant dizziness lasting only several minutes. Last evening was the last episode in which she was sitting in a chair. He then presented proceeded to stand and look up the window at which time his dizziness started. Symptoms resolved after he sat back down. Orthostatic vital signs were obtained from [facility] staff that did reveal blood pressure dropping from 123/48 down to 93/33. It is noted that patient has had an increase in his diuretic. Today, further evaluation was completed in the emergency room. White count was found to be 11.6, hemoglobin 12.4, hematocrit 36.8, platelet count 220. Sodium is 138, potassium 4.9, BUN elevated at 75 with a creatinine 2.3. It appears that his baseline is 1.4. Glucose is elevated at 221. Troponin was negative, proBNP 293, TSH 4.29. Analysis is obtained that does reveal a trace glucose, otherwise unremarkable. CT scan of the head reveals age-related atrophy with chronic small vessel ischemia. No acute findings. Chest x-ray is negative for acute findings. Twelve- lead EKG which he is in sinus rhythm with a first-degree AV block. Given his symptoms, accompanied with acute rise in renal function. The hospitalist services were contacted and accepted patient for outpatient admission for further evaluation and treatment. It is expected that his stay will be less than 2 overnights. Review of Systems All systems: reviewed and no additional remarkable complaints except as stated - Neurological Neurological: Present: dizziness, weakness (generalized) PFSH Past medical history. Type II diabetes. Hypertension. Carotid artery sclerosis. Hypercholesterolemia Hypothyroidism. History of TIAs History of ruptured tendon with repair to the right extremity. Surgical History: 1993-Excision of skin cancer. 2004-Cystoscopy with prostate biopsy. 2005- Colonoscopy. 2007-patellar and quadricep tendon repair following rupture. 2011-bilateral cataract Family History: Father at age 52 of an [place]. Brother at age 32 of testicular cancer. Son at age 46 of [place] - Social History Smoking status: Former smoker Substance use type: does not use Alcohol intake frequency: does not drink Housing: [facility] ([facility]) Current occupational status: retired Current residence: [place] Social history: Primary care provider, Dr. Pickens Medications Home Medications Medication Instructions Recorded Confirmed Type Insulin NPH/Aspart 70/30 [NovoLOG 25 unit SQ BID #0 09/10/11 11/16/16 History MIX 70-30] Bisoprolol Fumarate/Hctz 1 tab PO DAILY #30 tab 09/04/16 11/16/16 History [Bisoprolol-Hctz 10-6.25 mg Tab] Levothyroxine Sodium 25 mcg PO ACB #0 tab 09/04/16 11/16/16 History Simvastatin 10 mg PO DAILY #0 tab 09/04/16 11/16/16 History Aspirin [Aspirin] 81 mg PO DAILY 11/16/16 11/16/16 History Cyanocobalamin (Vitamin B-12) 1,000 mcg PO DAILY 11/16/16 11/16/16 History [Vitamin B-12] Furosemide [Lasix] 40 mg PO DAILY 11/16/16 11/16/16 History Lisinopril [Prinivil] 40 mg PO DAILY 11/16/16 11/16/16 History Loperamide [Imodium] 2 mg PO TID PRN 11/16/16 11/16/16 History Loratadine [Claritin] 10 mg PO DAILY PRN 11/16/16 11/16/16 History Multivitamin [Multivitamins] 1 cap PO BID 11/16/16 11/16/16 History Potassium Chloride [Klor-Con 10] 10 meq PO DAILY 11/16/16 11/16/16 History Allergies Allergy/AdvReac Type Severity Reaction Status Date / Time No Known Allergies Allergy Verified 11/16/16 12:46 Exam Vital Signs: Temperature 97.3 F 11/16/16 15:20 Pulse Rate 66 11/16/16 15:20 Respiratory Rate 18 11/16/16 15:20 Blood Pressure 159/77 H 11/16/16 15:20 Pulse Oximetry 99 11/16/16 15:20 Oxygen Delivery Method Room Air Telemetry Rhythm: Sinus Rhythm Height: 1.83 m Weight: 96 kg - Constitutional Present: no acute distress - Routine HEENT Exam Eye: Present: EOMI, PERRL ENT: Present: mucous membranes moist, dentition normal - Routine Neck Exam Present: supple, full ROM - Routine Respiratory Exam Present: CTA bilaterally. Absent: wheezes - Routine Cardiovascular Exam Present: RRR, S1, S2, murmur - Routine Abdominal Exam Present: soft, normoactive bowel sounds, non distended. Absent: tenderness - Routine Extremities Exam Present: full ROM, normal capillary refill - Routine Back/Spine/Pelvis Exam Back/Spine: Present: full ROM - Routine Skin Exam Present: intact, dry, warm - Routine Neurological Exam Present: alert, oriented X3, CN II-XII intact - Routine Psychiatric Exam Present: normal affect, normal thought process Results - Labs CBC & Chem 7: 11/16/16 12:52 11/16/16 12:52 Assessment and Plan DVT Prophylaxis: SCD's Resuscitation Status: Do Not Resuscitate Assessment and Plan: 11/16/16- Admission Acute Kidney Injury Dizziness with orthostatis Type II diabetes Hypertension Hypercholesterolemia Carotid artery atherosclerosis Hypothyroidism History of TIA Plan Admit to outpatient observation under the care of Dr Parham for LELA, dizziness with orthostatis Patient did receive 1 liter of normal saline while in the emergency room. We will continue saline at 75 and will per hour for gentle hydration Obtain Echocardiogram for further cardiac evaluation. Have asked nursing staff to obtain orthostatic vital signs every 8 hours. Monitor Accu-Cheks and utilize NovoLog units twice a day. Will also utilize sliding scale insulin as needed. Home dose of lisinopril, Lasix 40mg and Bisoprolol/HCTZ is stopped on admission. Will continue with Bisoprolol 10mg daily. Recheck CBC, BMP and magnesium tomorrow morning to follow blood counts, renal function and electrolytes. SCDs to bilateral lower extremity for DVT prophylaxis Patient does request to be a do not resuscitate and this orders written. Will discuss further orders and plan of care with attending, Dr. Parham At time of discharge medical care will return to primary care provider Dr Pickens Hospital Course Summary Disclaimer: The visit summary below is not to be considered part of the above Progress Note. Hospital Course: 11/16/16- Admission Plan Admit to outpatient observation under the care of Dr Parham for LELA, dizziness with orthostatis Patient did receive 1 liter of normal saline while in the emergency room. We will continue saline at 75 and will per hour for gentle hydration Obtain Echocardiogram for further cardiac evaluation. Have asked nursing staff to obtain orthostatic vital signs every 8 hours. Monitor Accu-Cheks and utilize NovoLog units twice a day. Will also utilize sliding scale insulin as needed. Home dose of lisinopril, Lasix 40mg and Bisoprolol/HCTZ is stopped on admission. Will continue with Bisoprolol 10mg daily. Recheck CBC, BMP and magnesium tomorrow morning to follow blood counts, renal function and electrolytes. SCDs to bilateral lower extremity for DVT prophylaxis Patient does request to be a do not resuscitate and this orders written. Will discuss further orders and plan of care with attending, Dr. Parham At time of discharge medical care will return to primary care provider Dr Pickens 11/16/16 15:40 <Sreekanth Parham S - Last Filed: 11/16/16 16:18> History of Present Illness Date: 11/16/16 [facility] Patient Stated Medical History Cerebrovascular Accident Yes: multiple TIA'a "unspecified cerebral infarction" Hypertension Yes Other Cardiology Yes: hyperlipidemia Diabetes Mellitus Type 2 Yes Other Yes: chronic kidney disease Other Musculoskeletal Yes: neuropathy Exam Vital Signs: Temperature 97.3 F 11/16/16 15:20 Pulse Rate 66 11/16/16 15:20 Respiratory Rate 18 11/16/16 15:20 Blood Pressure 159/77 H 11/16/16 15:20 Pulse Oximetry 99 11/16/16 15:20 Oxygen Delivery Method Room Air Height: 6 ft Weight: 97.5 kg Results - Labs CBC & Chem 7: 11/16/16 12:52 11/16/16 12:52 Assessment and Plan Assessment and Plan: Patient seen and examined. Agree with above. Hold nephrotoxic agents and give IVF. Check TTE. Hospital Course Summary Disclaimer: The visit summary below is not to be considered part of the above Progress Note.
[2016-11-16 15:43] VITALS: BMI 29.1
[2016-11-16] MEDS: NS 1,000 ML IV SCH (16:03)
[2016-11-16] MEDS: INSULIN NPH/ASPART 70/30 MIX INJECTION SQ SCH ×2 (17:11→20:34)
[2016-11-16] MEDS ORDERED: SIMVASTATIN 10 MG TABLET PO SCH (22:00)
[2016-11-17] MEDS: NS 1,000 ML IV SCH (05:49)
[2016-11-17] MEDS ORDERED: LEVOTHYROXINE 25 MCG TABLET PO SCH (06:30)
[2016-11-17] MEDS: INSULIN REGULAR, HUMAN 100 UNIT/ML INJECTION SQ PRN ×2 (06:35→11:24)
[2016-11-17] MEDS: INSULIN NPH/ASPART 70/30 MIX INJECTION SQ SCH (08:20)
[2016-11-17] MEDS ORDERED: ASPIRIN 81 MG CHEWABLE TABLET PO SCH (09:00)
--- NOTE | 2016-11-17 10:03 | Echocardiogram ---
DATE 11/16/2016 INDICATION Congestive heart failure. TECHNICAL QUALITY: Technically good 2D, M-mode and Doppler echocardiographic images were submitted for interpretation. FINDINGS 1. CARDIAC CHAMBERS. All cardiac chamber measurements are normal. Aortic root diameter is normal. RV size and contractility appear normal. Left atrial size is 3.1 cm. Left ventricle measures 5.4 cm. 2. LV FUNCTION. Wall thickness measures 10 mm. Wall motion analysis is normal. Systolic function is normal. EF of 60%. Diastolic dysfunction Grade I /IV is present. 3. VALVES. Aortic and mitral valves exhibit mild sclerosis, normal for patient's age, normal valve opening. Aortic valve opening appears preserved. Mitral annular calcification. Tricuspid valve structure and motion appear normal with normal valve excursion. 4. DOPPLER. Mild regurgitation involving aortic, mitral and tricuspid valves noted. IMPRESSION 1. Normal cardiac chamber size. 2. Normal LV systolic function, EF of 60%. 3. Mild diastolic dysfunction. 4. Mild aortic regurgitation. 5. Predominant aortic valve sclerosis without significant stenosis. 6. Mitral annular calcification. 7. Mild mitral regurgitation. 8. Mild tricuspid regurgitation. 9. Normal central venous pressure and normal systolic PA pressure. 10. Normal RV size and contractility. MTDD
[2016-11-17] MEDS ORDERED: PNEUMOCOCCAL 13 VACCINE 0.5ml INJECTION IM ONE (12:27)
--- NOTE | 2016-11-17 14:33 | Discharge Instructions ---
Discharge Plan - [facility]/Dispo [place] Instructions: Dizziness (GEN) Prescriptions: New Tamsulosin [Flomax] 0.4 mg PO HS #30 cap Bisoprolol [Zebeta] 10 mg PO DAILY #30 tablet Furosemide [Lasix] 1 tab PO DAILY #30 tab Continue Simvastatin 10 mg PO DAILY #0 tab Cyanocobalamin (Vitamin B-12) [Vitamin B-12] 1,000 mcg PO DAILY Loperamide [Imodium] 2 mg PO TID PRN PRN Reason: Diarrhea Loratadine [Claritin] 10 mg PO DAILY PRN PRN Reason: Prn Orders Multivitamin [Multivitamins] 1 cap PO BID Potassium Chloride [Klor-Con 10] 10 meq PO DAILY Insulin NPH/Aspart 70/30 [NovoLOG MIX 70-30] 25 unit SQ BID #0 Levothyroxine Sodium 25 mcg PO ACB #0 tab Lisinopril [Prinivil] 40 mg PO DAILY Aspirin 81 mg PO DAILY Discontinued Bisoprolol Fumarate/Hctz [Bisoprolol-Hctz 10-6.25 mg Tab] 1 tab PO DAILY #30 tab Furosemide [Lasix] 40 mg PO DAILY Discharge Instructions/Outpatient Orders: Final Provider Discharge Instructions Location: Determined By Patient - Disposition 01 Discharged Home, Self-Care
--- NOTE | 2016-11-17 14:42 | Discharge Summary ---
Discharge Information Date of admission: 11/16/16 14:48 Attending Physician: Sreekanth Parham MD Primary care physician: Nathalie Pickens MD - Laboratory Labs: 11/17/16 04:51 11/17/16 12:06 History of Present Illness HPI: Harpreet is a pleasant 86-year-old male who is brought to the emergency room from [facility] where he is resides for evaluation of dizziness. He reports that he has had intermittent episodes of dizziness for approximately 1 month. He reports in the last 2 weeks he has had 2 episodes of significant dizziness lasting only several minutes. Last evening was the last episode in which she was sitting in a chair. He then presented proceeded to stand and look up the window at which time his dizziness started. Symptoms resolved after he sat back down. Orthostatic vital signs were obtained from shelter staff that did reveal blood pressure dropping from 123/48 down to 93/33. It is noted that patient has had an increase in his diuretic. Today, further evaluation was completed in the emergency room. White count was found to be 11.6, hemoglobin 12.4, hematocrit 36.8, platelet count 220. Sodium is 138, potassium 4.9, BUN elevated at 75 with a creatinine 2.3. It appears that his baseline is 1.4. Glucose is elevated at 221. Troponin was negative, proBNP 293, TSH 4.29. Analysis is obtained that does reveal a trace glucose, otherwise unremarkable. CT scan of the head reveals age-related atrophy with chronic small vessel ischemia. No acute findings. Chest x-ray is negative for acute findings. Twelve- lead EKG which he is in sinus rhythm with a first-degree AV block. Given his symptoms, accompanied with acute rise in renal function. The hospitalist services were contacted and accepted patient for outpatient admission for further evaluation and treatment. It is expected that his stay will be less than 2 overnights. Objective Vital signs: Temperature 96.8 F 11/17/16 07:15 Pulse Rate 56 L 11/17/16 07:15 Respiratory Rate 16 11/17/16 07:15 Blood Pressure 128/63 11/17/16 07:52 Pulse Oximetry 96 11/17/16 07:15 Oxygen Delivery Method Room Air Gen.-aaox3, in no acute distress CV-regular rate and rhythm Lungs-clear auscultation bilaterally Abdomen-benign Extremities-no e/c/c Weight: 95.5 kg Hospital Course This is a general summary of the patient's hospital course. For more details refer to the complete medical record. Mr. Soto is an 86-year-old male with needed to the hospital for acute renal failure secondary to overdiuresis. Nephrotoxic agents were held. He was given 2 L normal saline during his hospitalization. His creatinine has normalized to his baseline. His hydrochlorothiazide has been discontinued. His Lasix has been decreased to 20 mg daily. His Lasix is being restarted. His beta blockers being continued. Patient complained of increased urinary frequency during his hospitalization. States that it is all day and all night. Patient is being discharged with a prescription for Flomax as well. Echocardiogram performed revealed the following results: 1. Normal cardiac chamber size. 2. Normal LV systolic function, EF of 60%. 3. Mild diastolic dysfunction. 4. Mild aortic regurgitation. 5. Predominant aortic valve sclerosis without significant stenosis. 6. Mitral annular calcification. 7. Mild mitral regurgitation. 8. Mild tricuspid regurgitation. 9. Normal central venous pressure and normal systolic PA pressure. 10. Normal RV size and contractility. Time spent with patient: 25 - 35 minutes Discharge Plan - Med Rec/Dispo [place] Instructions: Dizziness (GEN) Prescriptions: New Tamsulosin [Flomax] 0.4 mg PO HS #30 cap Bisoprolol [Zebeta] 10 mg PO DAILY #30 tablet Furosemide [Lasix] 1 tab PO DAILY #30 tab Continue Simvastatin 10 mg PO DAILY #0 tab Cyanocobalamin (Vitamin B-12) [Vitamin B-12] 1,000 mcg PO DAILY Loperamide [Imodium] 2 mg PO TID PRN PRN Reason: Diarrhea Loratadine [Claritin] 10 mg PO DAILY PRN PRN Reason: Prn Orders Multivitamin [Multivitamins] 1 cap PO BID Potassium Chloride [Klor-Con 10] 10 meq PO DAILY Insulin NPH/Aspart 70/30 [NovoLOG MIX 70-30] 25 unit SQ BID #0 Levothyroxine Sodium 25 mcg PO ACB #0 tab Lisinopril [Prinivil] 40 mg PO DAILY Aspirin 81 mg PO DAILY Discontinued Bisoprolol Fumarate/Hctz [Bisoprolol-Hctz 10-6.25 mg Tab] 1 tab PO DAILY #30 tab Furosemide [Lasix] 40 mg PO DAILY Discharge Instructions/Outpatient Orders: Final Provider Discharge Instructions Location: Determined By Patient - Disposition 01 Discharged Home, Self-Care
[2016-11-17 15:22] VITALS: BP 139/69; PULSE 55; RESP 20; TEMP 97.5; O2SAT 98
[2016-11-17] MEDS ORDERED: PNEUMOCOCCAL VAC ADMIN CHARGE INJ ONE (17:29)
== END 2016-11-17 17:30 | disposition home or self-care (01) ==
LOC: ED 12:16 → MED 12:16
PROVIDERS: ADMIT Internal Medicine; ATTEND Internal Medicine